=== PATIENT | female | born 1965 | race Caucasian/White ===

== ENCOUNTER 2017-05-20 15:50 | Emergency (ER) | payer SELFPAY ==
[~2017-05-20] VITALS: Ht 162.6 cm; Wt 73.9 kg
[2017-05-20] MEDS ORDERED: ONDANSETRON 4MG/2ML VIAL (J2405) IV ONE (17:00)
[2017-05-20] MEDS ORDERED: GI COCKTAIL 50ML BTL(HYOSCYAMINE/MAALOX/LIDOCAINE VISCOUS)(1:3:1) PO ONE (17:00)
[2017-05-20] MEDS ORDERED: NS 1,000 ML IV ONE (17:00)
[2017-05-20 17:32] LABS: BASO # 0.1 K/mm3 (0.0-0.2); BASO % 0.7 % (0.0-1.0); EOS % 0.2 % (0.0-3.0); LARGE UNSTAINED CELL # 0.1 K/mm3 (0.0-0.4); LARGE UNSTAINED CELL % 1.8 % (0.0-4.0); LYMPH # 3.1 K/mm3 (1.5-4.5); LYMPH % 39.4 % (24.0-44.0); MEAN CORPUSCULAR HEMOGLOBIN 31.2 pg (27.0-33.0); MEAN CORPUSCULAR HGB CONC 34.3 g/dl (32.0-36.5); MEAN CORPUSCULAR VOLUME 90.8 fl (80.0-96.0); MONO # 0.4 K/mm3 (0.0-0.8); MONO % 5.7 % (0.0-5.0); NEUTROPHILS % 52.1 % (36.0-66.0); PLATELET COUNT, AUTOMATED 321 k/mm3 (150-450); WHITE BLOOD COUNT 7.8 K/mm3 (4.0-10.0)
[2017-05-20 17:47] LABS: CONTROL LINE HCG INT CTR LINE PRESENT
[2017-05-20 17:56] LABS: ALBUMIN/GLOBULIN RATIO 1.18 (1.00-1.93); ALKALINE PHOSPHATASE 62 U/L (45-117); ALT/SGPT 15 U/L (12-78); ANION GAP 6 MEQ/L (8-16); AST/SGOT 10 U/L (15-37); BILIRUBIN,DIRECT < 0.1 MG/DL (0.0-0.2); BILIRUBIN,TOTAL 0.4 MG/DL (0.2-1.0); BLOOD UREA NITROGEN 10 MG/DL (7-18); CALCIUM LEVEL 8.6 MG/DL (8.5-10.1); CARBON DIOXIDE LEVEL 25 MEQ/L (21-32); CHLORIDE LEVEL 104 MEQ/L (98-107); CREATININE FOR GFR 0.73 MG/DL (0.55-1.02); GLOMERULAR FILTRATION RATE > 60.0 (>58); GLUCOSE, FASTING 90 MG/DL (70-105); POTASSIUM SERUM 3.7 MEQ/L (3.5-5.1); SODIUM LEVEL 135 MEQ/L (136-145); TOTAL PROTEIN 7.4 GM/DL (6.4-8.2)
[2017-05-20] MEDS ORDERED: OMEPRAZOLE 20 MG CAP PO ONE (18:30)
[2017-05-20] MEDS ORDERED: PRIL20CA9 PO (19:11)
[2017-05-20 19:17] VITALS: BP 136/88
--- NOTE | 2017-05-20 19:37 | REP ---
ABDOMINAL SERIES: Supine and erect views of the abdomen demonstrate no evidence of free intraperitoneal air. No evidence for bowel obstruction. No significantly dilated small bowel loops are seen. There are multiple phleboliths in the pelvis. There are mild degenerative changes of the spine. An accompanying view of the chest demonstrates no evidence of acute infiltrate. The heart is normal in size. IMPRESSION: Negative abdominal series. Signed by Anders Love MD 05/20/2017 08:24 P
--- NOTE | 2017-05-21 09:22 | ECGEPIP ---
Stationary ECG Study [facility] - ED Test Date: 2017-05-20 Pat Name: AMY NIEVES Department: Room: - Gender: F Ecg Technician: nathaly : 1965 Requested By: MARZENA CAMARILLO Order Number: [id number] Reading MD: Denise Capone Measurements Intervals [place] Rate: 60 P: 59 RI: 129 QRS: 74 QRSD: 88 T: 62 QT: 427 QTc: 427 Interpretive Statements SINUS RHYTHM NSTTW ABNORMALITY DECREASED RATE 11/19/11 Electronically Signed On 05-21-2017 9:22:14 EDT by Denise Capone
== END 2017-05-20 19:26 | disposition home or self-care (01) ==
LOC: M ED 17:11
DX: K52.9 Noninfective gastroenteritis and colitis, unspecified (principal); F12.10 Cannabis abuse, uncomplicated; Z90.89 Acquired absence of other organs; Z87.891 Personal history of nicotine dependence; Z88.8 Allergy status to other drugs, medicaments and biological substances; Z87.39 Personal history of other diseases of the musculoskeletal system and connective tissue
CPT/HCPCS: 74022; 80048; 80076; 82550; 82553; 83605; 83690; 84703; 85025; 93005; 96374; 99283; J2405

== ENCOUNTER → 2017-06-03 | Outpatient (REF) | payer OTHER ==
[~2017-06-03] MED LIST: PRIL20CA9 PO
== END ==
LOC: M SFHCWAGY 09:09
PROVIDERS: ATTEND Nurse Practitioner Family
DX: Z12.4 Encounter for screening for malignant neoplasm of cervix (principal)

== ENCOUNTER → 2017-08-12 | Outpatient (REF) | payer OTHER | LOC: M LAB REF 16:59 | PROVIDERS: ATTEND Nurse Practitioner Women's Health | DX: N76.0 Acute vaginitis (principal) ==

== ENCOUNTER → 2017-08-12 | Outpatient (REF) | payer OTHER | LOC: M SFHCWAGY 18:53 | PROVIDERS: ATTEND Nurse Practitioner Women's Health | DX: R87.612 Low grade squamous intraepithelial lesion on cytologic smear of cervix (LGSIL) (principal) ==

== ENCOUNTER → 2017-08-15 | Outpatient (CLI) | payer OTHER ==
--- NOTE | 2017-08-15 09:10 | REPMRS ---
Patient History The patient states she had a clinical breast exam in 06/2017. Patient is nulliparous. Family history of prostate cancer in father at age 66. Digital Woman Screen Mammo: August 15, 2017 - Exam #: [id number] Bilateral CC and MLO view(s) were taken. Technologist: Maryanne Khanna Technologist Prior study comparison: March 19, 2013, digital woman screen mammo performed at [facility] to [facility]. March 04, 2012, bilateral digital mammo diagnostic unilateral, performed at [facility]. February 22, 2012, digital woman screen mammo performed at [facility]. February 05, 2011, digital mammo diagnostic bilateral, performed at [facility]. FINDINGS: There are scattered fibroglandular densities. There is a stable grouping of punctate microcalcifications in the upper outer quadrant of the left breast unchanged from the March 21, 2012 prior mammography. There has been no change in the appearance of the mammogram from the prior studies. There is a mild amount of scattered fibroglandular density which is fairly symmetric. There is no interval development of dominant mass, architectural distortion, or clustered microcalcification suggestive of malignancy. ASSESSMENT: BI-RADS/ACR category 2 mammogram. Benign finding(s). Recommendation Routine screening mammogram in 1 year (for women over age 40). This mammogram was interpreted with the aid of an FDA-approved computer-aided dectection system. Electronically Signed By: Familia Gee MD 08/15/17 0918
== END ==
LOC: M WHC 08:10
PROVIDERS: ATTEND Nurse Practitioner Family
DX: Z12.31 Encounter for screening mammogram for malignant neoplasm of breast (principal)

== ENCOUNTER 2017-09-18 18:28 | Emergency (ER) | payer OTHER, SELFPAY ==
[~2017-09-18] VITALS: Ht 162.6 cm; Wt 77.3 kg
--- NOTE | 2017-09-18 21:10 | REPUSA ---
CLINICAL HISTORY: Pelvic pain. Ovarian cyst. TECHNIQUE: Realtime sonographic images were obtained in multiple projections. COMMENTS: The uterus is anteverted measuring 6.6 x 3.8 x 4.1 cm. The uterus is mildly heterogeneous. The endo metrial echo pattern is within normal limits measuring 5.9 mm. There is no evidence of free fluid within the pelvic cul-de-sac. The right ovary measures 1.9 x 1.4 x 1.5 cm and the left ovary measures 2.2 x 1.7 x 2.5 cm. Both ova thomas are free of solid or cystic mass. There is no evidence for abnormal vascularity. IMPRESSION: 1. Mildly heterogeneous uterus. 2. Normal bilateral ovaries.
[2017-09-18 21:40] VITALS: BP 132/58
== END 2017-09-18 21:41 | disposition home or self-care (01) ==
LOC: M ED 18:28
DX: R10.31 Right lower quadrant pain (principal); F41.9 Anxiety disorder, unspecified; F32.9 Major depressive disorder, single episode, unspecified; N83.299 Other ovarian cyst, unspecified side; Z88.8 Allergy status to other drugs, medicaments and biological substances

== ENCOUNTER 2018-07-05 07:13 | Emergency (ER) | payer SELFPAY ==
[2018-07-05 07:36] LABS: BASO # 0.1 10^3/uL (0.0-0.2); BASO % 0.7 % (0.0-1.0); HEMATOCRIT 48.3 % (36.0-47.0); HEMOGLOBIN 16.1 g/dl (12.0-15.5); IMMATURE GRANULOCYTE % 0.3 % (0-3.0); LYMPH % 31.7 % (24.0-44.0); MEAN CORPUSCULAR HEMOGLOBIN 29.7 pg (27.0-33.0); MEAN CORPUSCULAR HGB CONC 33.3 g/dl (32.0-36.5); MEAN CORPUSCULAR VOLUME 89.1 fl (80.0-96.0); MONO # 0.9 10^3/uL (0.0-0.8); MONO % 9.5 % (0.0-5.0); NEUTROPHILS # 5.4 10^3/uL (1.8-7.7); NEUTROPHILS % 57.8 % (36.0-66.0); PLATELET COUNT, AUTOMATED 354 10^3/uL (150-450); RED BLOOD COUNT 5.42 10^6/uL (4.00-5.40); RED CELL DISTRIBUTION WIDTH 13.8 % (11.5-14.5); WHITE BLOOD COUNT 9.4 10^3/uL (4.0-10.0)
[2018-07-05] MEDS: ADENOSINE 6MG/2ML INJECTION (J0153) IV (07:39)
[2018-07-05 07:46] LABS: INR 0.93; PROTHROMBIN TIME 12.5 SECONDS (12.1-14.4)
[2018-07-05 07:47] LABS: PARTIAL THROMBOPLASTIN TIME 50.5 SECONDS (25.4-37.6)
[2018-07-05] MEDS: METOPROLOL 5 MG/5 ML VIAL IV ×3 (07:53→08:10)
[2018-07-05 08:08] LABS: ALBUMIN/GLOBULIN RATIO 0.89 (1.00-1.93); ALKALINE PHOSPHATASE 76 U/L (45-117); ALT/SGPT 39 U/L (12-78); ANION GAP 9 MEQ/L (8-16); AST/SGOT 21 U/L (7-37); BILIRUBIN,DIRECT < 0.1 MG/DL (0.0-0.2); BILIRUBIN,TOTAL 0.4 MG/DL (0.2-1.0); BLOOD UREA NITROGEN 11 MG/DL (7-18); CALCIUM LEVEL 9.2 MG/DL (8.5-10.1); CARBON DIOXIDE LEVEL 25 MEQ/L (21-32); CHLORIDE LEVEL 105 MEQ/L (98-107); CPK CREATINE PHOSPHOKINASE 153 U/L (26-192); CREATININE FOR GFR 0.96 MG/DL (0.55-1.30); FREE T4 0.99 NG/DL (0.76-1.46); GLOMERULAR FILTRATION RATE > 60.0 (>51); GLUCOSE, FASTING 121 MG/DL (70-100); LIPASE 165 U/L (73-393); POTASSIUM SERUM 4.1 MEQ/L (3.5-5.1); SODIUM LEVEL 139 MEQ/L (136-145); TOTAL PROTEIN 8.5 GM/DL (6.4-8.2); TROPONIN I < 0.02 NG/ML (< 0.10)
[2018-07-05 08:13] LABS: CK-MB VALUE MASS 1.2 NG/ML (<3.6); MB/CK RELATIVE INDEX 0.78 (< OR =4); NT-PRO BNP 66 PG/ML (<125)
[2018-07-05] MEDS ORDERED: ISOVUE-370 76% 100ML VIAL (Q9967) As Ordered (08:42)
[2018-07-05 14:01] LABS: CK-MB VALUE MASS 1.6 NG/ML (<3.6); CPK CREATINE PHOSPHOKINASE 134 U/L (26-192); MB/CK RELATIVE INDEX 1.19 (< OR =4); TROPONIN I 0.02 NG/ML (< 0.10)
== END 2018-07-05 14:39 | disposition home or self-care (01) ==
LOC: M ED 07:13
DX: R91.8 Other nonspecific abnormal finding of lung field (principal); I48.92 Unspecified atrial flutter; R06.02 Shortness of breath; R11.0 Nausea; Z87.891 Personal history of nicotine dependence; Z88.8 Allergy status to other drugs, medicaments and biological substances
CPT/HCPCS: Q9967

== ENCOUNTER → 2018-08-12 | Outpatient (CLI) | payer SELFPAY | LOC: M CARPUL 09:38 | DX: I48.92 Unspecified atrial flutter (principal) | CPT/HCPCS: 93306 ==

== ENCOUNTER → 2018-09-03 | Outpatient (REF) | payer BC ==
[2018-09-03 17:00] LABS: FREE T3 2.6 PG/ML (2.2-4.0); FREE T4 0.91 NG/DL (0.76-1.46)
== END ==
LOC: M SFHCPLAZ 12:04
DX: I48.92 Unspecified atrial flutter (principal)
CPT/HCPCS: 84443

== ENCOUNTER → 2018-09-10 | Outpatient (REF) | payer BC ==
[2018-09-10 12:23] LABS: HEMATOCRIT 42.7 % (36.0-47.0); HEMOGLOBIN 13.6 g/dl (12.0-15.5); MEAN CORPUSCULAR HEMOGLOBIN 29.2 pg (27.0-33.0); MEAN CORPUSCULAR HGB CONC 31.9 g/dl (32.0-36.5); MEAN CORPUSCULAR VOLUME 91.6 fl (80.0-96.0); PLATELET COUNT, AUTOMATED 327 10^3/uL (150-450); RED BLOOD COUNT 4.66 10^6/uL (4.00-5.40); WHITE BLOOD COUNT 6.2 10^3/uL (4.0-10.0)
== END ==
LOC: M SFHCPLAZ 10:44
DX: N93.9 Abnormal uterine and vaginal bleeding, unspecified (principal)
CPT/HCPCS: 85027

== ENCOUNTER → 2019-01-12 | Outpatient (REF) | payer BC ==
[2019-01-12 19:21] LABS: FREE T4 0.89 NG/DL (0.76-1.46); THYROID STIMULATING HORMONE 8.09 uIU/ML (0.358-3.740)
== END ==
LOC: M SFHCPLAZ 14:26
PROVIDERS: ATTEND Family Medicine
DX: E03.8 Other specified hypothyroidism (principal)

== ENCOUNTER 2019-01-29 14:58 | Emergency (ER) | payer BC ==
[~2019-01-29] VITALS: Ht 162.6 cm; Wt 79.1 kg
[2019-01-29] MEDS ORDERED: ELIQ5TAB PO (15:14)
[2019-01-29] MEDS ORDERED: PARO1TAB33 PO (15:14)
[2019-01-29] MEDS ORDERED: METO1TAB87 PO (15:14)
[2019-01-29] MEDS ORDERED: NS 500 ML IV ONE (16:45)
[2019-01-29 16:51] LABS: BASO % 0.4 % (0.0-1.0); EOS % 0.2 % (0.0-3.0); HEMATOCRIT 49.9 % (36.0-47.0); HEMOGLOBIN 17.2 g/dl (12.0-15.5); LYMPH # 2.7 10^3/uL (1.5-4.5); LYMPH % 28.3 % (24.0-44.0); MEAN CORPUSCULAR HEMOGLOBIN 29.7 pg (27.0-33.0); MEAN CORPUSCULAR HGB CONC 34.5 g/dl (32.0-36.5); MONO # 0.7 10^3/uL (0.0-0.8); MONO % 7.7 % (0.0-5.0); NEUTROPHILS # 6.1 10^3/uL (1.8-7.7); NEUTROPHILS % 63.2 % (36.0-66.0); PLATELET COUNT, AUTOMATED 320 10^3/uL (150-450); WHITE BLOOD COUNT 9.6 10^3/uL (4.0-10.0)
[2019-01-29 18:13] LABS: ALBUMIN 3.8 GM/DL (3.2-5.2); ALT/SGPT 24 U/L (12-78); BILIRUBIN,DIRECT 0.2 MG/DL (0.0-0.2); BILIRUBIN,TOTAL 0.8 MG/DL (0.2-1.0); BLOOD UREA NITROGEN 12 MG/DL (7-18); CARBON DIOXIDE LEVEL 34 MEQ/L (21-32); CHLORIDE LEVEL 93 MEQ/L (98-107); CREATININE FOR GFR 0.85 MG/DL (0.55-1.30); GLOMERULAR FILTRATION RATE > 60.0 (>51); GLUCOSE, FASTING 98 MG/DL (70-100); POTASSIUM SERUM 2.9 MEQ/L (3.5-5.1); SODIUM LEVEL 135 MEQ/L (136-145); TOTAL PROTEIN 7.6 GM/DL (6.4-8.2)
[2019-01-29] MEDS ORDERED: POTASSIUM CHLORIDE 10 MEQ SR TABLET PO ONE (18:15)
[2019-01-29] MEDS ORDERED: METOCLOPRAMIDE INJ 10MG/2ML VIAL (J2765) IV ONE (18:15)
[2019-01-29] MEDS ORDERED: ONDA4TAB6 PO (18:39)
[2019-01-29] MEDS ORDERED: K-TA1TAB PO (18:39)
[2019-01-29 19:11] VITALS: BP 133/75
--- NOTE | 2019-01-31 09:37 | ECGEPIP ---
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
== END 2019-01-29 19:14 | disposition home or self-care (01) ==
LOC: M ED 14:58
DX: R11.2 Nausea with vomiting, unspecified (principal); E87.6 Hypokalemia; I48.92 Unspecified atrial flutter; M54.9 Dorsalgia, unspecified; F32.9 Major depressive disorder, single episode, unspecified; F17.200 Nicotine dependence, unspecified, uncomplicated; Z88.8 Allergy status to other drugs, medicaments and biological substances; Z79.899 Other long term (current) drug therapy; Z79.01 Long term (current) use of anticoagulants
CPT/HCPCS: 36415; 80048; 80076; 85025; 93005; 96374; 99285; J2765

== ENCOUNTER → 2019-02-11 | Outpatient (CLI) | payer BC ==
[~2019-02-11] MED LIST changes: +BUPR150T3; +CIPR500T3; +ELIQ5TAB PO; +GASTROGRAFIN SOLUTION 30ML (Q9963) As Ordered ONE; +ISOVUE-370 76% 100ML VIAL (Q9967) As Ordered ONE; +K-TA1TAB PO; +METO1TAB87 PO; +METR-201; +NORCOTAB PO; +OMEP-218; +ONDA4TAB6 PO; +PARO1TAB33 PO; +REGL10TA6 PO
--- NOTE | 2019-02-11 13:48 | REP ---
CT ABDOMEN PELVIS WITH IV CONTRAST: 02/11/2019 COMPARISON: 02/02/2013. TECHNIQUE: Bolus of 100 mL Isovue 370 and oral Gastrografin mixture per our protocol utilized with scanning through the abdomen and pelvis in both coronal and sagittal reconstructions provided. CLINICAL HISTORY: Generalized abdominal pain. FINDINGS: CT ABDOMEN: The lung bases remain clear. Heart not enlarged. There is no pericardial thickening or effusion and no hiatal hernia. Liver and spleen are not enlarged. I see no focal hepatic mass or intrahepatic biliary dilatation. Gallbladder without calcified stone appears unchanged. Pancreas, adrenal glands and kidneys are grossly unremarkable. Stomach with some retained fluid but no wall thickening or mass. Small bowel loops are fluid or contrast filled but not abnormally dilated. Most of the contrast is in distal small bowel and colon where it reaches the hepatic flexure. Stool and gas are scattered throughout the colon to the rectosigmoid. The aorta is without aneurysm or dissection. No periaortic or retroperitoneal pathologic sized lymphadenopathy. Lung window review of all CT slices in the abdomen shows no perforation or free air. Bone windows show lumbar and lower thoracic vertebral levels with some degenerative changes in the facets. The bones of the lower thoracic vertebral levels and ribs intact. CT PELVIS: The bony sacrum, pelvis, hips and pubic symphysis are unremarkable. SI joints intact. Bladder partially filled without mass, wall thickening or stone. Uterus anteverted, not enlarged. No ureteral dilatation or stone. No adnexal mass. The distal left colon was unremarkable. The sigmoid shows a zone of muscular hypertrophy and diverticulosis with some mild diverticulitis. I do not see perforation, abscess or free air. The study shows no evidence of ascites or abscess. No other drainable collection. No ventral or inguinal hernia nor pathologic sized inguinal adenopathy. IMPRESSION: 1. Fairly extensive diverticulosis with sigmoid diverticulitis and muscular hypertrophy. I do not see perforation, abscess, ascites or free air. 2. Remainder of the colon is unremarkable and the appendix absent. Small bowel loops intact. Upper abdominal organs unremarkable. Electronically Signed by Jaxon Hess MD 02/11/2019 09:53 P
== END ==
LOC: M RAD 10:43
PROVIDERS: ATTEND Family Medicine
DX: R10.9 Unspecified abdominal pain (principal)

== ENCOUNTER 2019-02-12 17:37 | Emergency (ER) | payer BC ==
[~2019-02-12] VITALS: Ht 162.6 cm; Wt 79.2 kg
[~2019-02-12 17:37] MED LIST changes: -BUPR150T3; -CIPR500T3; -METR-201; -NORCOTAB PO; -OMEP-218; -REGL10TA6 PO
[2019-02-12] MEDS ORDERED: METR-201 (17:49)
[2019-02-12] MEDS ORDERED: BUPR150T3 (17:49)
[2019-02-12] MEDS ORDERED: OMEP-218 (17:49)
[2019-02-12] MEDS ORDERED: CIPR500T3 (17:49)
[2019-02-12] MEDS ORDERED: IPRATROPIUM 0.5MG/ALBUTEROL 2.5MG INH SOL UD 3ML (DUONEB)(J7620) NEB ONE (20:15)
[2019-02-12] MEDS ORDERED: LR 1,000 ML IV ONE (20:15)
[2019-02-12] MEDS ORDERED: MORPHINE 4 MG/ML 1ML VIAL/SYRINGE (J2270) IV PRN (20:15)
[2019-02-12] MEDS ORDERED: CIPROFLOXACIN 500 MG TAB PO ONE (20:30)
[2019-02-12] MEDS ORDERED: metroNIDAZOLE (FLAGYL) 500 MG TAB PO ONE (20:30)
[2019-02-12 20:49] LABS: BASO % 0.5 % (0.0-1.0); EOS # 0.1 10^3/uL (0.0-0.50); EOS % 0.8 % (0.0-3.0); HEMOGLOBIN 13.6 g/dl (12.0-15.5); LYMPH # 2.8 10^3/uL (1.5-4.5); LYMPH % 36.1 % (24.0-44.0); MEAN CORPUSCULAR HEMOGLOBIN 29.3 pg (27.0-33.0); MEAN CORPUSCULAR HGB CONC 31.6 g/dl (32.0-36.5); MEAN CORPUSCULAR VOLUME 92.7 fl (80.0-96.0); MONO # 0.6 10^3/uL (0.0-0.8); MONO % 7.3 % (0.0-5.0); NEUTROPHILS # 4.2 10^3/uL (1.8-7.7); PLATELET COUNT, AUTOMATED 382 10^3/uL (150-450); RED BLOOD COUNT 4.64 10^6/uL (4.00-5.40); WHITE BLOOD COUNT 7.6 10^3/uL (4.0-10.0)
[2019-02-12 21:13] LABS: ALBUMIN 3.9 GM/DL (3.2-5.2); ALT/SGPT 21 U/L (12-78); BILIRUBIN,DIRECT < 0.1 MG/DL (0.0-0.2); BILIRUBIN,TOTAL 0.2 MG/DL (0.2-1.0); BLOOD UREA NITROGEN 8 MG/DL (7-18); CALCIUM LEVEL 8.7 MG/DL (8.5-10.1); CARBON DIOXIDE LEVEL 29 MEQ/L (21-32); CHLORIDE LEVEL 105 MEQ/L (98-107); GLOMERULAR FILTRATION RATE > 60.0 (>51); GLUCOSE, FASTING 88 MG/DL (70-100); LIPASE 509 U/L (73-393); POTASSIUM SERUM 3.8 MEQ/L (3.5-5.1); SODIUM LEVEL 140 MEQ/L (136-145); TOTAL PROTEIN 7.3 GM/DL (6.4-8.2)
[2019-02-12 21:16] LABS: CK-MB VALUE MASS < 1.0 NG/ML (<3.6); CPK CREATINE PHOSPHOKINASE 163 U/L (26-192); MB/CK RELATIVE INDEX 0.61 (< OR =4); TROPONIN I < 0.02 NG/ML (< 0.10)
[2019-02-12] MEDS ORDERED: METOCLOPRAMIDE INJ 10MG/2ML VIAL (J2765) IV ONE (21:45)
[2019-02-12 22:02] VITALS: BP 102/59
[2019-02-12] MEDS ORDERED: REGL10TA6 PO (22:08)
[2019-02-12] MEDS ORDERED: NORCOTAB PO (22:08)
[2019-02-12] MEDS ORDERED: NORCO 5/325MG TABLET (BULK FOR ED) PO ONE (22:15)
--- NOTE | 2019-02-13 02:16 | REP ---
Clinical: Wheezing . Comparison: 07/05/2018 . Technique: PA and lateral. Findings: The mediastinum and cardiac silhouette are normal. The lung ortiz are clear and without acute consolidation, effusion, or pneumothorax. The skeletal structures are intact and normal. Impression: 1. No acute cardiopulmonary process. Electronically Signed by Kelton Mojica MD 02/13/2019 02:08 A
--- NOTE | 2019-02-13 20:27 | ECGEPIP ---
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
== END 2019-02-12 22:30 | disposition home or self-care (01) ==
LOC: M ED 17:37
DX: K57.32 Diverticulitis of large intestine without perforation or abscess without bleeding (principal); R74.8 Abnormal levels of other serum enzymes; R10.13 Epigastric pain; G89.29 Other chronic pain; R11.2 Nausea with vomiting, unspecified; M26.69 Other specified disorders of temporomandibular joint; Z87.891 Personal history of nicotine dependence; Z88.8 Allergy status to other drugs, medicaments and biological substances; Z79.899 Other long term (current) drug therapy; Z79.2 Long term (current) use of antibiotics
CPT/HCPCS: 71046; 80048; 80076; 81001; 82550; 82553; 83690; 85025; 87086; 93005; 94640; 96374; 96375; 99284; J2270; J2765

== ENCOUNTER → 2019-02-12 | Outpatient (REF) | payer BC ==
[~2019-02-12] MED LIST changes: -GASTROGRAFIN SOLUTION 30ML (Q9963) As Ordered ONE; -ISOVUE-370 76% 100ML VIAL (Q9967) As Ordered ONE
[2019-02-12 16:37] LABS: BASO % 0.6 % (0.0-1.0); EOS % 0.6 % (0.0-3.0); HEMATOCRIT 40.2 % (36.0-47.0); HEMOGLOBIN 12.9 g/dl (12.0-15.5); LYMPH # 2.3 10^3/uL (1.5-4.5); LYMPH % 34.8 % (24.0-44.0); MEAN CORPUSCULAR HEMOGLOBIN 29.1 pg (27.0-33.0); MEAN CORPUSCULAR HGB CONC 32.1 g/dl (32.0-36.5); MEAN CORPUSCULAR VOLUME 90.7 fl (80.0-96.0); MONO # 0.5 10^3/uL (0.0-0.8); NEUTROPHILS # 3.8 10^3/uL (1.8-7.7); NEUTROPHILS % 56.8 % (36.0-66.0); PLATELET COUNT, AUTOMATED 363 10^3/uL (150-450); RED BLOOD COUNT 4.43 10^6/uL (4.00-5.40); WHITE BLOOD COUNT 6.6 10^3/uL (4.0-10.0)
[2019-02-12 16:51] LABS: C REACTIVE PROTEIN QUANTITATIV < 0.30 MG/DL (0.00-0.30); LIPASE 1069 U/L (73-393)
[2019-02-12 20:14] LABS: ALBUMIN 3.4 GM/DL (3.2-5.2); ALT/SGPT 15 U/L (12-78); BILIRUBIN,TOTAL 0.2 MG/DL (0.2-1.0); BLOOD UREA NITROGEN 9 MG/DL (7-18); CALCIUM LEVEL 8.5 MG/DL (8.5-10.1); CARBON DIOXIDE LEVEL 29 MEQ/L (21-32); CHLORIDE LEVEL 108 MEQ/L (98-107); CREATININE FOR GFR 0.74 MG/DL (0.55-1.30); GLOMERULAR FILTRATION RATE > 60.0 (>51); GLUCOSE, FASTING 104 MG/DL (70-100); POTASSIUM SERUM 4.3 MEQ/L (3.5-5.1); SODIUM LEVEL 141 MEQ/L (136-145); TOTAL PROTEIN 6.4 GM/DL (6.4-8.2)
[2019-02-12 20:26] LABS: ERYTHROCYTE SEDIMENTATION RATE 6 mm/hr (0-30)
== END ==
LOC: M LABDRAW1 15:34
PROVIDERS: ATTEND Family Medicine
DX: R10.84 Generalized abdominal pain (principal)

== ENCOUNTER → 2019-02-18 | Outpatient (REF) | payer BC ==
[~2019-02-18] MED LIST changes: +BUPR150T3; +CIPR500T3; +METR-201; +NORCOTAB PO; +OMEP-218; +REGL10TA6 PO
[2019-02-18 14:32] LABS: CHOLESTEROL RISK RATIO 3.792 (<5)
== END ==
LOC: M SFHCPLAZ 12:18
PROVIDERS: ATTEND Family Medicine
DX: K85.90 Acute pancreatitis without necrosis or infection, unspecified (principal)

== ENCOUNTER 2019-04-11 10:45 | Emergency (ER) | payer BC ==
[~2019-04-11] VITALS: Ht 162.6 cm; Wt 70.4 kg
[~2019-04-11 10:45] MED LIST changes: +HYDR-3715 PO; -METR-201; +METR-265; -NORCOTAB PO
[2019-04-11] MEDS ORDERED: SUCRALFATE 1 GM TAB PO ONE (11:45)
[2019-04-11] MEDS ORDERED: NS 1,000 ML IV ONE (11:45)
[2019-04-11] MEDS ORDERED: ONDANSETRON 4MG/2ML VIAL (J2405) IV ONE (11:45)
[2019-04-11] MEDS ORDERED: GI COCKTAIL 50ML BTL(HYOSCYAMINE/MAALOX/LIDOCAINE VISCOUS)(1:3:1) PO ONE (11:45)
[2019-04-11] MEDS ORDERED: PANTOPRAZOLE 40MG INJ (PROTONIX) (C9113) IV ONE (11:45)
[2019-04-11] MEDS ORDERED: ISOVUE-370 76% 100ML VIAL (Q9967) As Ordered ONE (11:47)
[2019-04-11 11:54] LABS: BASO # 0.1 10^3/uL (0.0-0.2); BASO % 0.7 % (0.0-1.0); EOS # 0.1 10^3/uL (0.0-0.50); EOS % 0.9 % (0.0-3.0); HEMATOCRIT 49.2 % (36.0-47.0); HEMOGLOBIN 16.7 g/dl (12.0-15.5); LYMPH # 2.3 10^3/uL (1.5-4.5); LYMPH % 24.5 % (24.0-44.0); MEAN CORPUSCULAR HEMOGLOBIN 29.9 pg (27.0-33.0); MEAN CORPUSCULAR HGB CONC 33.9 g/dl (32.0-36.5); MONO # 0.7 10^3/uL (0.0-0.8); MONO % 8.1 % (0.0-5.0); NEUTROPHILS % 65.5 % (36.0-66.0); PLATELET COUNT, AUTOMATED 394 10^3/uL (150-450); RED BLOOD COUNT 5.59 10^6/uL (4.00-5.40); WHITE BLOOD COUNT 9.2 10^3/uL (4.0-10.0)
[2019-04-11 12:05] LABS: ALBUMIN 4.3 GM/DL (3.2-5.2); ALBUMIN 4.5 GM/DL (3.2-5.2); ALT/SGPT 12 U/L (12-78); BILIRUBIN,DIRECT 0.2 MG/DL (0.0-0.2); BILIRUBIN,TOTAL 0.9 MG/DL (0.2-1.0); BLOOD UREA NITROGEN 12 MG/DL (7-18); CALCIUM LEVEL 9.9 MG/DL (8.5-10.1); CARBON DIOXIDE LEVEL 29 MEQ/L (21-32); CHLORIDE LEVEL 96 MEQ/L (98-107); CREATININE FOR GFR 0.88 MG/DL (0.55-1.30); GLOMERULAR FILTRATION RATE > 60.0 (>51); GLUCOSE, FASTING 120 MG/DL (70-100); POTASSIUM SERUM 3.3 MEQ/L (3.5-5.1); SODIUM LEVEL 135 MEQ/L (136-145); TOTAL PROTEIN 8.2 GM/DL (6.4-8.2); TOTAL PROTEIN 8.3 GM/DL (6.4-8.2)
--- NOTE | 2019-04-11 12:27 | REP ---
CT ABDOMEN AND PELVIS WITH IV BUT WITHOUT ORAL CONTRAST: HISTORY: Epigastric pain. Evaluate for pancreatitis. COMPARISON CT STUDY: February 11, 2019 CT CONTRAST DOSE: 100 mL of intravenous Isovue 370. CT FINDINGS: Preliminary digital automobile club information clerk radiograph is unremarkable. Lung bases are clear on axial CT images. There is no evidence of pleural effusion or upper abdominal ascites. The liver and the spleen are normal in size, homogeneous in texture. No adrenal lesion is seen. No pancreatic abnormality is seen. There is mild enhancement of the gallbladder wall, but no stone is seen by CT. No retroperitoneal or mesenteric adenopathy is appreciated. The kidneys enhance symmetrically and are morphologically intact. No intrarenal calculus is observed. There is extensive sigmoid colon diverticulosis. Scattered diverticulosis is seen in the right colon and descending segment of the colon. Terminal ileum is unremarkable. The appendix is surgically absent. There is some mural thickening in the sigmoid colon similar to the prior study of February 11, 2019. No evidence of abscess or pericolonic fat stranding is appreciated. No evidence of free intraperitoneal air is seen. No uterine or ovarian abnormality is observed. No abdominal wall defect is seen. Urinary bladder is largely empty but unremarkable. No significant bony abnormality. IMPRESSION: Moderate left colonic diverticulosis with mild mural thickening, question of diverticulitis. No abscess or free air. Post appendectomy. No morphologic abnormality in the pancreas. Otherwise negative. Electronically Signed by Kwabena Gee MD 04/11/2019 03:29 P
[2019-04-11] MEDS ORDERED: [UNRECOGNIZED DRUG - CODE] TOP (12:52)
[2019-04-11] MEDS ORDERED: CARA1TAB6 PO (12:52)
[2019-04-11] MEDS ORDERED: ONDA4TAB6 PO (12:57)
[2019-04-11 13:11] VITALS: BP 172/92
== END 2019-04-11 13:21 | disposition home or self-care (01) ==
LOC: M ED 10:45
DX: K52.9 Noninfective gastroenteritis and colitis, unspecified (principal); T40.7X1A Poisoning by cannabis (derivatives), accidental (unintentional), initial encounter; R11.2 Nausea with vomiting, unspecified; K57.30 Diverticulosis of large intestine without perforation or abscess without bleeding; Z87.42 Personal history of other diseases of the female genital tract; Z87.891 Personal history of nicotine dependence; Z88.8 Allergy status to other drugs, medicaments and biological substances; Z79.899 Other long term (current) drug therapy
CPT/HCPCS: 36415; 74177; 80047; 80053; 83605; 83690; 85025; 96361; 96374; 96375; 99284; C9113; J2405; Q9967

== ENCOUNTER 2019-05-04 16:00 | Emergency (ER) | payer BC ==
[~2019-05-04] VITALS: Ht 162.6 cm; Wt 68.1 kg
[~2019-05-04 16:00] MED LIST changes: +CARA1TAB6 PO; +[UNRECOGNIZED DRUG - CODE] TOP
[2019-05-04] MEDS ORDERED: NS 1,000 ML IV ONE ×2 (17:00→19:45)
[2019-05-04] MEDS ORDERED: ONDANSETRON 4MG/2ML VIAL (J2405) IV ONE (17:00)
[2019-05-04] MEDS ORDERED: KETOROLAC 30 MG/ML VIAL (J1885) IV ONE (17:00)
[2019-05-04 17:24] LABS: BASO # 0.1 10^3/uL (0.0-0.2); BASO % 0.5 % (0.0-1.0); EOS % 0.3 % (0.0-3.0); HEMOGLOBIN 15.9 g/dl (12.0-15.5); LYMPH # 3.5 10^3/uL (1.5-4.5); LYMPH % 30.8 % (24.0-44.0); MEAN CORPUSCULAR HEMOGLOBIN 29.2 pg (27.0-33.0); MEAN CORPUSCULAR HGB CONC 33.8 g/dl (32.0-36.5); MEAN CORPUSCULAR VOLUME 86.4 fl (80.0-96.0); MONO # 0.8 10^3/uL (0.0-0.8); MONO % 7.2 % (0.0-5.0); NEUTROPHILS % 60.9 % (36.0-66.0); PLATELET COUNT, AUTOMATED 340 10^3/uL (150-450); RED BLOOD COUNT 5.44 10^6/uL (4.00-5.40); WHITE BLOOD COUNT 11.5 10^3/uL (4.0-10.0)
[2019-05-04 17:36] LABS: ALBUMIN 4.5 GM/DL (3.2-5.2); ALT/SGPT 15 U/L (12-78); BILIRUBIN,DIRECT 0.2 MG/DL (0.0-0.2); BILIRUBIN,TOTAL 0.7 MG/DL (0.2-1.0); BLOOD UREA NITROGEN 16 MG/DL (7-18); CALCIUM LEVEL 10.3 MG/DL (8.5-10.1); CARBON DIOXIDE LEVEL 27 MEQ/L (21-32); CHLORIDE LEVEL 97 MEQ/L (98-107); CREATININE FOR GFR 0.93 MG/DL (0.55-1.30); GLOMERULAR FILTRATION RATE > 60.0 (>51); GLUCOSE, FASTING 106 MG/DL (70-100); LIPASE 88 U/L (73-393); POTASSIUM SERUM 3.4 MEQ/L (3.5-5.1); SODIUM LEVEL 137 MEQ/L (136-145); TOTAL PROTEIN 8.1 GM/DL (6.4-8.2)
--- NOTE | 2019-05-04 19:09 | REPVR ---
EXAM: US Abdomen Limited, Right Upper Quadrant EXAM DATE/TIME: 05/04/2019 6:33 PM CLINICAL HISTORY: 53 years old, female; Abdominal pain; Epigastric; Additional info: HX cholelithiasis/inc wbc/ruq pain TECHNIQUE: Imaging protocol: Real-time ultrasound of the abdomen with image documentation. Examination was focused on the right upper quadrant. COMPARISON: GALLBLADDER US 04/21/2019 6:53 AM FINDINGS: Liver: Unremarkable, as visualized. Gallbladder: The gallbladder demonstrates multiple shadowing stones, as before. The sonographic Thomas sign was again positive. Common bile duct: The common bile duct measures 3.6 mm. Pancreas: Visualized pancreas is unremarkable. Right kidney: The right kidney measures 11.1 cm in length. No hydronephrosis. IMPRESSION: 1. Cholelithiasis without sonographic evidence of cholecystitis. 2. The sonographic Thomas sign was positive, of uncertain significance, as before (could reflect early cholecystitis or biliary colic). Electronically signed by: Criselda Quach On 05/04/2019 19:08:44 PM
[2019-05-04] MEDS ORDERED: ISOVUE-370 76% 100ML VIAL (Q9967) As Ordered ONE (19:48)
[2019-05-04 19:56] LABS: CPK CREATINE PHOSPHOKINASE 99 U/L (26-192); MB/CK RELATIVE INDEX 1.21 (< OR =4); TROPONIN I < 0.02 NG/ML (< 0.10)
--- NOTE | 2019-05-04 20:54 | REPVR ---
EXAM: CT Abdomen and Pelvis With Contrast EXAM DATE/TIME: 05/04/2019 8:18 PM CLINICAL HISTORY: 53 years old, female; Abdominal pain; Localized; Lower; Additional info: Lower abd pain, HX divertic TECHNIQUE: Imaging protocol: Axial computed tomography images of the abdomen and pelvis with intravenous contrast. Coronal and sagittal reformatted images were created and reviewed. Radiation optimization: All CT scans at this facility use at least one of these dose optimization techniques: automated exposure control; mA and/or kV adjustment per patient size (includes targeted exams where dose is matched to clinical indication); or iterative reconstruction. Contrast material: ISOVUE 370; Contrast volume: 100 ml; Contrast route: IV; COMPARISON: CT ABD/PEL W/IV CONTRAST ONLY 04/11/2019 11:49 AM. US - Abdomen 05/04/2019 6:24:21 PM FINDINGS: A 2 mm left lower lobe nodule pulmonary nodule is unchanged. For patients at low risk (minimal or absent history of smoking and of other known risk factors), no routine follow-up is indicated. For patients at high risk (history of smoking or of other known risk factors), consider optional CT at 12 months. (Augustine et al., Fleischner Society, 2017). ABDOMEN: Liver: Normal. No mass. Gallbladder and bile ducts: No calcified gallstones identified. A trace amount of nonspecific pericholecystic fluid (without sonographic correlate), image 43 series 201. The gallbladder wall appears mildly enhancing, as before. Pancreas: Normal. No ductal dilation. Spleen: Normal. No splenomegaly. Adrenals: Normal. No mass. Kidneys and ureters: The right kidney demonstrates a small cortical scar. No hydronephrosis. Stomach and bowel: The appearance of duodenal wall thickening is probably related to underdistention. The appearance of diffuse distal colonic wall thickening, similar to the prior study suspicious for ongoing or recurrent colitis or diverticulitis. No evidence of bowel wall pneumatosis or abscess. The appearance of duodenal wall thickening is probably related to underdistention. No evidence of bowel obstruction. A moderate amount of stool in the proximal colon. Appendix: An appendix is not visualized. No secondary signs of appendicitis identified in the right lower quadrant. PELVIS: Bladder: Unremarkable as visualized. Reproductive: Unremarkable as visualized. ABDOMEN and PELVIS: Intraperitoneal space: Normal. No free air. No significant fluid collection. Bones/joints: No acute fracture seen. Slight grade 1 degenerative anterolisthesis of L3 on L4. There is severe lower lumbar facet arthropathy. The AP spinal canal diameter is diminished on a developmental basis due to shortened pedicles. There are high-grade central spinal canal and lateral recess stenoses at L3-4 and L4-5. Several small sclerotic lesions are seen in the bony skeleton which are felt to represent bone islands. Soft tissues: Unremarkable. Vasculature: Normal. No abdominal aortic aneurysm. Lymph nodes: No pathologically enlarged lymph nodes. IMPRESSION: 1. The appearance of diffuse distal colonic wall thickening, similar to the prior study suspicious for ongoing or recurrent colitis or diverticulitis. 2. A trace amount of nonspecific pericholecystic fluid has developed since the prior study. Please correlate with the clinical scenario, the possibility of an early cholecystitis is considered although there was no sonographically evident fluid or gallbladder wall thickening on the ultrasound exam. A short interval followup right upper quadrant ultrasound could be obtained, as needed. Electronically signed by: Criselda Quach On 05/04/2019 20:53:41 PM
[2019-05-04] MEDS ORDERED: CIPR-249 PO (21:15)
[2019-05-04] MEDS ORDERED: NORC1TAB7 PO (21:15)
[2019-05-04] MEDS ORDERED: ZOFR4TAB16 PO (21:15)
[2019-05-04] MEDS ORDERED: FLAG500T PO (21:15)
[2019-05-04] MEDS ORDERED: CIPROFLOXACIN 500 MG TAB PO ONE (21:30)
[2019-05-04] MEDS ORDERED: metroNIDAZOLE (FLAGYL) 500 MG TAB PO ONE (21:30)
[2019-05-04 21:32] VITALS: BP 138/70
--- NOTE | 2019-05-05 13:05 | ED PDOC ---
Post-Departure Follow-Up dr chávez faxed formal report of ct abd/p for fu Pao Raman MD May 05, 2019 13:05
--- NOTE | 2019-05-06 07:35 | ECGEPIP ---
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
== END 2019-05-04 21:30 | disposition home or self-care (01) ==
LOC: M ED 16:00
DX: K57.32 Diverticulitis of large intestine without perforation or abscess without bleeding (principal); R10.11 Right upper quadrant pain; K80.20 Calculus of gallbladder without cholecystitis without obstruction; F41.9 Anxiety disorder, unspecified; F32.9 Major depressive disorder, single episode, unspecified; Z87.891 Personal history of nicotine dependence; F12.10 Cannabis abuse, uncomplicated; Z88.8 Allergy status to other drugs, medicaments and biological substances
CPT/HCPCS: 74177; 76705; 80048; 80076; 82550; 82553; 83690; 85025; 93005; 96361; 96374; 96375; 99284; J1885; J2405; Q9967

== ENCOUNTER → 2019-06-17 | Outpatient (CLI) | payer BC ==
[~2019-06-17] MED LIST changes: +CAPS42.53 TOP; +CIPR-249 PO; +FLAG500T PO; +NORC1TAB7 PO; +TRAM50TA2 PO; +ZOFR4TAB16 PO; -[UNRECOGNIZED DRUG - CODE] TOP
--- NOTE | 2019-06-17 12:47 | REP ---
HIDA SCAN WITH GALLBLADDER EJECTION FRACTION: Following the intravenous administration of 6.4 millicuries of technetium 99m Mebrofenin, multiple images of the right upper quadrant are performed every 5 minutes for a period of 1 hour. Gallbladder is visualized at 10 minutes post injection. There is biliary to bowel transit 30 minutes post injection with no scintigraphic evidence of cholecystitis. At the 1-hour richard, 8 ounces of Ensure Enlive is ingested and further imaging performed for 1 hour. Gallbladder activity is measured and the gallbladder ejection fraction is calculated to be 74%, which is normal. IMPRESSION: Normal gallbladder ejection fraction. Electronically Signed by Anders Love MD 06/19/2019 12:58 P
== END ==
LOC: M RAD 08:41
PROVIDERS: ATTEND Surgery
DX: R10.11 Right upper quadrant pain (principal)
CPT/HCPCS: 78227; A9537; J2805

== ENCOUNTER 2019-06-24 08:46 | Day surgery (SDC) | payer BC ==
[~2019-06-24] VITALS: Ht 165.1 cm; Wt 64.6 kg
[~2019-06-24 08:46] MED LIST changes: +NS 1,000 ML IV ONE
[2019-06-24] MEDS ORDERED: LIDOCAINE 2% INJ 100 MG/5 ML SDV (FOR ANES.) As Ordered ONE (10:45)
[2019-06-24] MEDS ORDERED: PROPOFOL 200 MG/20 ML VIAL As Ordered ONE ×2 (10:45→10:46)
--- NOTE | 2019-06-24 11:08 | ROOR ---
Patient Name: Rachana Lopez Procedure Date: 06/24/2019 10:34 AM Date of : 1965 Age: 54 Room: [facility] Gender: Female Note Status: Finalized Procedure: Upper GI endoscopy Indications: Dysphagia Providers: Anders Grant DO Referring MD: Ramila LEWIS DO Requesting Provider: Medicines: Propofol per Anesthesia Complications: No immediate complications. Procedure: Pre-Anesthesia Assessment: - Prior to the procedure, a History and Physical was performed, and patient medications and allergies were reviewed. The patient is competent. The risks and benefits of the procedure and the sedation options and risks were discussed with the patient. All questions were answered and informed consent was obtained. Patient identification and proposed procedure were verified by the physician, the nurse, the anesthesiologist and the cnc technician in the endoscopy suite. Mental Status Examination: alert and oriented. Airway Examination: normal oropharyngeal airway and neck mobility. Respiratory Examination: clear to auscultation. CV Examination: normal. Prophylactic Antibiotics: The patient does not require prophylactic antibiotics. Prior Anticoagulants: The patient has taken no previous anticoagulant or antiplatelet agents. ASA Grade Assessment: II - A patient with mild systemic disease. After reviewing the risks and benefits, the patient was deemed in satisfactory condition to undergo the procedure. The anesthesia plan was to use monitored anesthesia care (MAC). Immediately prior to administration of medications, the patient was re-assessed for adequacy to receive sedatives. The heart rate, respiratory rate, oxygen saturations, blood pressure, adequacy of pulmonary ventilation, and response to care were monitored throughout the procedure. The physical status of the patient was re-assessed after the procedure. The Endoscope was introduced through the mouth, and advanced to the third part of duodenum. The upper GI endoscopy was accomplished without difficulty. The patient tolerated the procedure well. Findings: Localized minimal inflammation characterized by erythema was found in the prepyloric region of the stomach. Localized moderate inflammation characterized by congestion (edema), erythema and friability was found in the duodenal bulb. Impression: - Gastritis. - Duodenitis. - No specimens collected. Recommendation: - Patient has a contact number available for emergencies. The signs and symptoms of potential delayed complications were discussed with the patient. Return to normal activities tomorrow. Written discharge instructions were provided to the patient. - Return to my office as previously scheduled. Anders Grant DO 06/24/2019 11:07:58 AM Electronically signed by Anders Grant DO Number of Addenda: 0 Note Initiated On: 06/24/2019 10:34 AM Estimated Blood Loss: Estimated blood loss: none.
--- NOTE | 2019-06-24 11:12 | ROOR ---
Patient Name: Rachana Lopez Procedure Date: 06/24/2019 10:35 AM Date of : 1965 Age: 54 Room: [facility] Gender: Female Note Status: Finalized Procedure: Colonoscopy Indications: Colitis, presumed infectious Providers: Anders Grant DO Referring MD: Ramila LEWIS DO Requesting Provider: Medicines: Propofol per Anesthesia Complications: No immediate complications. Procedure: Pre-Anesthesia Assessment: - Prior to the procedure, a History and Physical was performed, and patient medications and allergies were reviewed. The patient is competent. The risks and benefits of the procedure and the sedation options and risks were discussed with the patient. All questions were answered and informed consent was obtained. Patient identification and proposed procedure were verified by the physician, the nurse, the anesthesiologist and the controls technician in the endoscopy suite. Mental Status Examination: alert and oriented. Airway Examination: normal oropharyngeal airway and neck mobility. Respiratory Examination: clear to auscultation. CV Examination: normal. Prophylactic Antibiotics: The patient does not require prophylactic antibiotics. Prior Anticoagulants: The patient has taken no previous anticoagulant or antiplatelet agents. ASA Grade Assessment: II - A patient with mild systemic disease. After reviewing the risks and benefits, the patient was deemed in satisfactory condition to undergo the procedure. The anesthesia plan was to use monitored anesthesia care (MAC). Immediately prior to administration of medications, the patient was re-assessed for adequacy to receive sedatives. The heart rate, respiratory rate, oxygen saturations, blood pressure, adequacy of pulmonary ventilation, and response to care were monitored throughout the procedure. The physical status of the patient was re-assessed after the procedure. The Colonoscope was introduced through the anus with the intention of advancing to the cecum. The scope was advanced to the sigmoid colon before the procedure was aborted. Medications were not given. The colonoscopy was aborted due to the extreme difficulty of the procedure. The colonoscopy was technically difficult and complex due to a tortuous colon. Findings: The sigmoid colon was grossly tortuous. Estimated blood loss: none. The exam was otherwise without abnormality on direct and retroflexion views. Impression: - The procedure was aborted due to the extreme difficulty of the procedure. - Tortuous colon. - The examination was otherwise normal on direct and retroflexion views. - No specimens collected. Recommendation: - Patient has a contact number available for emergencies. The signs and symptoms of potential delayed complications were discussed with the patient. Return to normal activities tomorrow. Written discharge instructions were provided to the patient. - Perform a single contrast barium enema today. Anders Grant DO 06/24/2019 11:12:12 AM Electronically signed by Anders Grant DO Number of Addenda: 0 Note Initiated On: 06/24/2019 10:35 AM Estimated Blood Loss: Estimated blood loss: none.
[2019-06-24] MEDS ORDERED: VoLumen 0.1% SUSPENSION 450ML BOTTLE As Ordered ONE (11:38)
[2019-06-24] MEDS ORDERED: LIQUID POLIBAR PLUS 105% w/v 1900ML BTL As Ordered ONE (11:39)
[2019-06-24 11:40] VITALS: BP 156/78
--- NOTE | 2019-06-25 11:11 | REP ---
BARIUM ENEMA AIR CONTRAST The procedure was performed under the direct supervision of Dr. Love. The images were reviewed with Dr. Love. The patient is status post incomplete colonoscopy. The management scientist film shows no organomegaly or pathological masses. The test gas pattern is nonspecific. Liquid barium and air were instilled into the colon in a retrograde flow of the barium air mixture. The sigmoid colon is redundant and there are innumerable diverticula which limits evaluation for polyps. There is free flow of contrast to the cecum. The colon is otherwise normal in position and contour. Haustration is unremarkable throughout. There are a few mobile filling defects seen throughout the examination consistent with small stool particles from incomplete cleansing. There are no annular constricting lesions identified. There are scattered diverticula seen throughout the remainder of the colon. Impression: The sigmoid colon is redundant and there are innumerable diverticula which limits evaluation. There are scattered diverticula seen throughout the remainder of the colon. Otherwise, there contrast barium enema within normal limits. 2.1 minutes of fluoroscopy time was utilized for this procedure. Reviewed by ANGEL Jordan 06/24/2019 04:36 P Electronically Signed by Anders Love MD 06/25/2019 11:02 A
[2019-07-07] MEDS ORDERED: FLAG500T PO (16:28)
[2019-07-07] MEDS ORDERED: CIPR-249 PO (16:28)
== END 2019-06-24 11:49 | disposition home or self-care (01) ==
LOC: M OPP 08:46
PROVIDERS: ATTEND Surgery
DX: K52.9 Noninfective gastroenteritis and colitis, unspecified (principal); Q43.8 Other specified congenital malformations of intestine; R13.10 Dysphagia, unspecified; K29.70 Gastritis, unspecified, without bleeding; K29.80 Duodenitis without bleeding; I48.91 Unspecified atrial fibrillation; K57.32 Diverticulitis of large intestine without perforation or abscess without bleeding; M19.90 Unspecified osteoarthritis, unspecified site; F32.9 Major depressive disorder, single episode, unspecified; F41.9 Anxiety disorder, unspecified; F12.10 Cannabis abuse, uncomplicated; Z87.891 Personal history of nicotine dependence; Z91.048 Other nonmedicinal substance allergy status; Z88.8 Allergy status to other drugs, medicaments and biological substances; Z79.899 Other long term (current) drug therapy

== ENCOUNTER 2019-07-17 07:42 | Day surgery (SDC) | payer BC ==
[~2019-07-17] VITALS: Ht 162.6 cm; Wt 67.3 kg
[~2019-07-17 07:42] MED LIST changes: +LIDOCAINE 1% MDV 20ML VIAL SQ PRN; +LR 1,000 ML IV ONE; -NS 1,000 ML IV ONE
[2019-07-17] MEDS ORDERED: BUPIVACAINE/EPIN 0.25% 30 ML VIAL As Ordered ONE (09:29)
[2019-07-17] MEDS ORDERED: PROPOFOL 200 MG/20 ML VIAL As Ordered ONE (10:00)
[2019-07-17] MEDS ORDERED: ROCURONIUM BROMIDE 50 MG/5 ML VIAL As Ordered ONE (10:00)
[2019-07-17] MEDS ORDERED: MIDAZOLAM INJ 2 MG/2 ML VIAL (J2250) As Ordered ONE (10:00)
[2019-07-17] MEDS ORDERED: LIDOCAINE 2% INJ 100 MG/5 ML SDV (FOR ANES.) As Ordered ONE (10:00)
[2019-07-17] MEDS ORDERED: fentaNYL 100 MCG/2 ML INJECTION (J3010) As Ordered ONE ×3 (10:00→10:50)
[2019-07-17] MEDS ORDERED: ONDANSETRON 4MG/2ML VIAL (J2405) As Ordered ONE (10:00)
[2019-07-17] MEDS ORDERED: KETOROLAC 60 MG/2 ML VIAL (J1885) As Ordered ONE (10:00)
[2019-07-17] MEDS ORDERED: dexameTHASONE 4 MG/ML 1ML VIAL (J1100) As Ordered ONE (10:00)
[2019-07-17] MEDS ORDERED: SUGAMMADEX SODIUM 500 MG/5 ML VIAL (BRIDION) As Ordered ONE (10:12)
[2019-07-17] MEDS: fentaNYL 100 MCG/2 ML INJECTION (J3010) IV PRN ×4 (10:48→11:03)
[2019-07-17] MEDS: LABETALOL HCL 100 MG/20 ML VIAL IV SCH ×5 (11:04→11:24)
[2019-07-17] MEDS: MORPHINE 10 MG/ML 1ML VIAL (J2270) IV PRN ×3 (11:07→11:27)
[2019-07-17] MEDS ORDERED: MORPHINE 10 MG/ML 1ML VIAL (J2270) As Ordered ONE (11:09)
[2019-07-17] MEDS ORDERED: LABETALOL HCL 100 MG/20 ML VIAL As Ordered ONE (11:09)
[2019-07-17] MEDS ORDERED: PERCOCET 5MG/325MG TAB PO PRN (11:15)
[2019-07-17] MEDS ORDERED: MEPERIDINE INJ 25 MG/ML VIAL (J2175) IV PRN (11:15)
[2019-07-17] MEDS ORDERED: KETOROLAC 30 MG/ML VIAL (J1885) IV PRN (11:15)
[2019-07-17] MEDS ORDERED: METOCLOPRAMIDE INJ 10MG/2ML VIAL (J2765) IV PRN (11:15)
[2019-07-17] MEDS ORDERED: NORCO, ANEXSIA 5/325MG TABLET (HYDROcodone/ACETAMINOPHEN) PO PRN (11:15)
[2019-07-17] MEDS ORDERED: ONDANSETRON 4MG/2ML VIAL (J2405) IV PRN (11:15)
[2019-07-17] MEDS ORDERED: LR 1,000 ML IV SCH (11:15)
[2019-07-17 13:40] VITALS: BP 130/76
--- NOTE | 2019-07-21 15:09 | RO ---
DATE OF PROCEDURE: 07/17/2019 PREOPERATIVE DIAGNOSIS: Symptomatic cholelithiasis. POSTOPERATIVE DIAGNOSIS: Symptomatic cholelithiasis. PROCEDURE: Laparoscopic cholecystectomy. SURGEON: Dr. Grant FABRIC AND ACCESSORIES ESTIMATOR: None. ANESTHESIA: General. ESTIMATED BLOOD LOSS: 5. COMPLICATIONS: None. INDICATION FOR PROCEDURE: The patient is a 54-year-old who presents with right upper quadrant pain and found have symptomatic cholelithiasis. Recommendation was to proceed with laparoscopicm, possible open cholecystectomy. Risks and benefits of the of procedure not limited to, but including bleeding, infection, hernia formation, damage to surrounding structures, need for further surgery were discussed detail with the patient. Informed consent was obtained. Procedure was planned. PROCEDURE: The patient was brought back to operating room #8. After sufficient sedation, the abdomen was sterilely prepped and draped. Next, a time-out was done to confirm proper patient and proper procedure. Following that an 11 mm incision made in the left lower quadrant. Veress needle was inserted and the abdomen was insufflated to 50 mmHg. Next, a 5 mm supraumbilical midline incision was made and a 5 mm Optiview port was used to enter the abdomen. Once the abdomen was entered, Veress needle site was examined and there was no signs of any injury. The Veress needle was removed and replaced with an 11 mm port. Two more 5 mm ports were placed in the upper quadrant. The fundus of the gallbladder was elevated up towards the right shoulder. The cystic duct and cystic artery were dissected using blunt and sharp dissection. Once they were both clearly identified, they were both doubly clipped and cut. The gallbladder was then removed from gallbladder fossa using electrocautery, brought out in a 10 mm EndoCatch bag through the subxiphoid port site. The abdomen was then desufflated. Skin incisions closed with #4-0 Vicryl subcuticular sutures. The abdomen was cleaned and dried. Steri-Strips, 4 x 4, and tape were applied, thus ending procedure.
== END 2019-07-17 13:59 | disposition home or self-care (01) ==
LOC: M SDC 07:42
PROVIDERS: ATTEND Surgery
DX: K80.10 Calculus of gallbladder with chronic cholecystitis without obstruction (principal); Z86.79 Personal history of other diseases of the circulatory system; Z88.8 Allergy status to other drugs, medicaments and biological substances; Z79.899 Other long term (current) drug therapy; Z87.891 Personal history of nicotine dependence; F41.9 Anxiety disorder, unspecified; F32.9 Major depressive disorder, single episode, unspecified
CPT/HCPCS: 47562; 88304; J1100; J1885; J2250; J2270; J2405; J3010

== ENCOUNTER → 2020-01-07 | Outpatient (REF) | payer BC ==
[~2020-01-07] MED LIST changes: -LIDOCAINE 1% MDV 20ML VIAL SQ PRN; -LR 1,000 ML IV ONE
== END ==
LOC: M LAB REF 15:37
PROVIDERS: ATTEND Nurse Practitioner
DX: L82.1 Other seborrheic keratosis (principal)

== ENCOUNTER → 2020-01-07 | Outpatient (CLI) | payer BC ==
--- NOTE | 2020-01-07 21:57 | REPPI ---
Clinical: Intractable pain. Technique: AP, lateral, bilateral oblique, and coned-down views of the lumbosacral spine. Comparison: 09/10/2007. Findings: Alignment and lordosis maintained. Vertebral bodies are intact without acute fracture / compression injury or subluxation. Minimal endplate sclerosis facet arthropathy and subtle disc space narrowing at L5-S1 unchanged. No further significant degenerative changes appreciated by radiographic evaluation. No spondylolysis or spondylolisthesis noted. Impression: Mild degenerative spondylosis at L5-L1. Electronically Signed by Kelton Mojica MD 01/07/2020 09:49 P
--- NOTE | 2020-01-07 21:59 | REPPI ---
Clinical: Intractable pain and headache. Technique: AP, lateral, flexion/extension, bilateral oblique and open mouth views of the cervical spine. Findings: Moderate degenerative disc osteophyte complex noted at the C4-5 and C5-6 along with early advanced degenerative disc osteophyte complex at C6-7. Alignment is maintained. No acute fracture / compression injury or subluxation. Oblique views demonstrate associated neural foraminal narrowing. Open mouth view demonstrates normal C1-C2 articulation and odontoid process. Impression: Moderate/early advanced degenerative spondylosis. Electronically Signed by Kelton Mojica MD 01/07/2020 09:51 P
== END ==
LOC: M PLAIMG 12:17
PROVIDERS: ATTEND Family Medicine
DX: M47.812 Spondylosis without myelopathy or radiculopathy, cervical region (principal); M47.817 Spondylosis without myelopathy or radiculopathy, lumbosacral region; G44.201 Tension-type headache, unspecified, intractable

== ENCOUNTER 2020-01-26 12:58 | Outpatient (RCR) | payer BC | END 2020-01-30 | LOC: M PT 12:58 | PROVIDERS: ATTEND Family Medicine | DX: M54.5 Low back pain (principal) ==

== ENCOUNTER → 2020-02-05 | Outpatient (REF) | payer BC, SELFPAY ==
[2020-02-05 12:08] LABS: BASO # 0.1 10^3/uL (0.0-0.2); BASO % 0.9 % (0.0-1.0); EOS # 0.1 10^3/uL (0.0-0.5); EOS % 1.7 % (0.0-3.0); HEMATOCRIT 41.8 % (36.0-47.0); HEMOGLOBIN 13.1 g/dl (12.0-15.5); LYMPH # 2.3 10^3/uL (1.5-5.0); LYMPH % 27.5 % (24.0-44.0); MEAN CORPUSCULAR HEMOGLOBIN 29.3 pg (27.0-33.0); MEAN CORPUSCULAR HGB CONC 31.3 g/dl (32.0-36.5); MEAN CORPUSCULAR VOLUME 93.5 fl (80.0-96.0); MONO # 0.6 10^3/uL (0.0-0.8); MONO % 7.2 % (0.0-5.0); NEUTROPHILS # 5.1 10^3/uL (1.5-8.5); NEUTROPHILS % 62.2 % (36.0-66.0); PLATELET COUNT, AUTOMATED 360 10^3/uL (150-450); RED BLOOD COUNT 4.47 10^6/uL (4.00-5.40); WHITE BLOOD COUNT 8.2 10^3/uL (4.0-10.0)
[2020-02-05 12:11] LABS: APPEARANCE, URINE CLEAR (CLEAR); BACTERIA, URINE AUTO 1+ (NEGATIVE); BILIRUBIN, URINE AUTO NEGATIVE (NEGATIVE); BLOOD, URINE BLOOD NEGATIVE (NEGATIVE); COLOR, URINE AMBER (YELLOW); GLUCOSE, URINE (UA) AUTO NEGATIVE (NEGATIVE); KETONE, URINE AUTO TRACE mg/dL (NEGATIVE); LEUKOCYTE ESTERASE, URINE AUTO 2+ (NEGATIVE); MUCUS, URINE SMALL (NEGATIVE); NITRITE, URINE AUTO NEGATIVE (NEGATIVE); PROTEIN, URINE AUTO NEGATIVE (NEGATIVE); RBC, URINE AUTO 5 /HPF (0-3); SPECIFIC GRAVITY URINE AUTO 1.027 (1.002-1.035); SQUAMOUS EPITHELIAL CELL UR AU 3 /HPF (0-6); UROBILINOGEN, URINE AUTO 0.2 mg/dL (0.0-2.0); WBC, URINE AUTO 15 /HPF (0-3)
[2020-02-05 12:12] LABS: BLOOD UREA NITROGEN 13 MG/DL (7-18); C REACTIVE PROTEIN QUANTITATIV 4.93 MG/DL (0.00-0.30); CARBON DIOXIDE LEVEL 32 MEQ/L (21-32); CHLORIDE LEVEL 103 MEQ/L (98-107); CREATININE FOR GFR 0.86 MG/DL (0.55-1.30); GLOMERULAR FILTRATION RATE > 60.0 (>51); GLUCOSE, FASTING 106 MG/DL (70-100); LIPASE 207 U/L (73-393); POTASSIUM SERUM 4.3 MEQ/L (3.5-5.1); SODIUM LEVEL 139 MEQ/L (136-145)
== END ==
LOC: M SFHCPLAZ 08:44
PROVIDERS: ATTEND Family Medicine
DX: R10.30 Lower abdominal pain, unspecified (principal)

== ENCOUNTER → 2020-02-05 | Outpatient (CLI) | payer BC, SELFPAY ==
--- NOTE | 2020-02-05 11:47 | REPPI ---
KUB ABDOMEN AND PELVIS: KUB film of the abdomen and pelvis performed. There is moderate fecal material scattered throughout the colon. No dilated small bowel loops are seen. Metallic clips are seen in the right upper quadrant. Phleboliths are seen in the pelvis. There are mild degenerative changes of the spine. IMPRESSION: Moderate fecal material throughout the colon. No evidence of bowel obstruction. Electronically Signed by Anders Love MD 02/09/2020 03:27 P
== END ==
LOC: M PLAIMG 09:30
PROVIDERS: ATTEND Family Medicine
DX: K59.00 Constipation, unspecified (principal); R10.30 Lower abdominal pain, unspecified

== ENCOUNTER 2020-02-24 13:00 | Outpatient (RCR) | payer BC | END 2020-03-01 | LOC: M PT 13:00 | PROVIDERS: ATTEND Family Medicine | DX: M54.5 Low back pain (principal) ==

== ENCOUNTER → 2020-03-01 | Outpatient (REF) | payer BC ==
[2020-03-01 13:48] LABS: BASO # 0.1 10^3/uL (0.0-0.2); BASO % 1.1 % (0.0-1.0); EOS # 0.2 10^3/uL (0.0-0.5); EOS % 2.3 % (0.0-3.0); HEMATOCRIT 42.8 % (36.0-47.0); HEMOGLOBIN 13.5 g/dl (12.0-15.5); LYMPH # 2.8 10^3/uL (1.5-5.0); LYMPH % 33.7 % (24.0-44.0); MEAN CORPUSCULAR HEMOGLOBIN 30.2 pg (27.0-33.0); MEAN CORPUSCULAR HGB CONC 31.5 g/dl (32.0-36.5); MEAN CORPUSCULAR VOLUME 95.7 fl (80.0-96.0); MONO # 0.6 10^3/uL (0.0-0.8); MONO % 7.5 % (0.0-5.0); NEUTROPHILS # 4.5 10^3/uL (1.5-8.5); NEUTROPHILS % 55.2 % (36.0-66.0); PLATELET COUNT, AUTOMATED 324 10^3/uL (150-450); RED BLOOD COUNT 4.47 10^6/uL (4.00-5.40); WHITE BLOOD COUNT 8.2 10^3/uL (4.0-10.0)
[2020-03-01 13:52] LABS: BLOOD UREA NITROGEN 18 MG/DL (7-18); CALCIUM LEVEL 9.6 MG/DL (8.5-10.1); CARBON DIOXIDE LEVEL 35 MEQ/L (21-32); CHLORIDE LEVEL 103 MEQ/L (98-107); CREATININE FOR GFR 0.87 MG/DL (0.55-1.30); GLOMERULAR FILTRATION RATE > 60.0 (>51); GLUCOSE, FASTING 108 MG/DL (70-100); POTASSIUM SERUM 5.6 MEQ/L (3.5-5.1); SODIUM LEVEL 139 MEQ/L (136-145)
[2020-03-01 13:54] LABS: APPEARANCE, URINE HAZY (CLEAR); BACTERIA, URINE AUTO NEGATIVE (NEGATIVE); BILIRUBIN, URINE AUTO NEGATIVE (NEGATIVE); BLOOD, URINE BLOOD NEGATIVE (NEGATIVE); COLOR, URINE YELLOW (YELLOW); GLUCOSE, URINE (UA) AUTO NEGATIVE (NEGATIVE); KETONE, URINE AUTO NEGATIVE (NEGATIVE); LEUKOCYTE ESTERASE, URINE AUTO NEGATIVE (NEGATIVE); MUCUS, URINE SMALL (NEGATIVE); NITRITE, URINE AUTO NEGATIVE (NEGATIVE); PROTEIN, URINE AUTO NEGATIVE (NEGATIVE); RBC, URINE AUTO 1 /HPF (0-3); SPECIFIC GRAVITY URINE AUTO 1.025 (1.002-1.035); SQUAMOUS EPITHELIAL CELL UR AU 0 /HPF (0-6); UROBILINOGEN, URINE AUTO 0.2 mg/dL (0.0-2.0); WBC, URINE AUTO 2 /HPF (0-3)
[2020-03-01 16:07] LABS: MAGNESIUM LEVEL 2.3 MG/DL (1.8-2.4)
== END ==
LOC: M SFHCPLAZ 08:54
PROVIDERS: ATTEND Family Medicine
DX: R10.2 Pelvic and perineal pain (principal)

== ENCOUNTER → 2020-03-02 | Outpatient (REF) | payer BC ==
[2020-03-02 14:58] LABS: BLOOD UREA NITROGEN 18 MG/DL (7-18); CALCIUM LEVEL 9.3 MG/DL (8.5-10.1); CARBON DIOXIDE LEVEL 35 MEQ/L (21-32); CHLORIDE LEVEL 102 MEQ/L (98-107); GLOMERULAR FILTRATION RATE > 60.0 (>51); GLUCOSE, FASTING 117 MG/DL (70-100); POTASSIUM SERUM 4.7 MEQ/L (3.5-5.1); SODIUM LEVEL 136 MEQ/L (136-145)
== END ==
LOC: M PLALAB 13:56
PROVIDERS: ATTEND Family Medicine
DX: R10.2 Pelvic and perineal pain (principal)

== ENCOUNTER → 2020-04-05 | Outpatient (CLI) | payer BC | LOC: M WHC 10:47 | PROVIDERS: ATTEND Obstetrics & Gynecology | DX: N93.9 Abnormal uterine and vaginal bleeding, unspecified (principal) ==

== ENCOUNTER → 2020-04-14 | Outpatient (CLI) | payer BC ==
--- NOTE | 2020-04-15 03:21 | REP ---
Clinical: Abnormal uterine bleeding . Technique: Transabdominal pelvic ultrasound. Findings: Bladder is unremarkable and measures approximately 9.6 x 5.9 x 7.1 cm . Heterogeneous anteverted uterus measures 7.5 x 3.3 x 4.0 cm . The endometrial complex measures 3.4 mm thickness. No discrete uterine or endometrial abnormalities are appreciated. Bilateral ovaries are normal in appearance. Right ovary measures 2.0 x 1.2 x 2.0 cm ; Left ovary measures 1.8 x 1.0 x 1.5 cm. No pelvic fluid or adnexal mass lesion. . Impression: 1. Heterogeneous myometrial echotexture is nonspecific. Evaluation was somewhat limited due to technical factors including body habitus and overlying bowel gas.
== END ==
LOC: M WHC 14:18
PROVIDERS: ATTEND Obstetrics & Gynecology
DX: N93.9 Abnormal uterine and vaginal bleeding, unspecified (principal)

== ENCOUNTER → 2020-06-10 | Outpatient (REF) | payer BC ==
[~2020-06-10] MED LIST changes: -CAPS42.53 TOP; +CAPS42.54 TOP; +CLON0.5T2 PO; +FLUO60TA6 PO; +GABA-845 PO; +METH4PACK PO; +MOBI15TA PO; +NAPR-885 PO; +OMEP-218 PO; +ROBA750T4 PO; +ROLLMIS8 XX
[2020-06-10 13:59] LABS: AMORPHOUS SEDIMENT LARGE (NEGATIVE); APPEARANCE, URINE TURBID (CLEAR); BACTERIA, URINE AUTO NEGATIVE (NEGATIVE); BILIRUBIN, URINE AUTO NEGATIVE (NEGATIVE); BLOOD, URINE BLOOD 2+ (NEGATIVE); COLOR, URINE YELLOW (YELLOW); GLUCOSE, URINE (UA) AUTO NEGATIVE (NEGATIVE); KETONE, URINE AUTO NEGATIVE (NEGATIVE); LEUKOCYTE ESTERASE, URINE AUTO NEGATIVE (NEGATIVE); MUCUS, URINE LARGE (NEGATIVE); NITRITE, URINE AUTO NEGATIVE (NEGATIVE); PROTEIN, URINE AUTO 2+ mg/dL (NEGATIVE); RBC, URINE AUTO 2 /HPF (0-3); SPECIFIC GRAVITY URINE AUTO 1.024 (1.002-1.035); SQUAMOUS EPITHELIAL CELL UR AU 2 /HPF (0-6); WBC, URINE AUTO 3 /HPF (0-3)
== END ==
LOC: M SFHCPLAZ 12:56
PROVIDERS: ATTEND Family Medicine
DX: R35.0 Frequency of micturition (principal)

== ENCOUNTER → 2020-08-09 | Outpatient (CLI) | payer BC ==
--- NOTE | 2020-08-30 14:56 | REP ---
ABDOMINAL ULTRASOUND: FINDINGS: Real time sonographic evaluation of the abdomen is performed. The patient has had a prior cholecystectomy. There is no intrahepatic or extrahepatic biliary dilatation, the common bile duct measuring 3 mm. The liver is slightly enlarged with a length of approximately 17.2 cm. No gross liver or pancreatic mass is seen. The pancreas is not well seen due to overlying bowel gas. The spleen is normal in size with no intrinsic abnormality, measuring 9.3 x 4.0 x 8.5 cm. The kidney is normal in size and echotexture, the right kidney measuring 11.6 x 4.9 x 4.2 cm and the left kidney measuring 11.1 x 4.1 x 4.9 cm. There is no renal mass, hydronephrosis or nephrolithiasis identified. There is no evidence of abdominal aortic aneurysm. The proximal abdominal aorta measures 2.2 cm in maximal AP dimension and distally, 1.5 cm. No ascites is seen. There is an enlarged para-aortic lymph node measuring 2.1 cm in length and approximately 1.4 cm in short axis dimension. There appears to be an enlarged lymph node in the right lower quadrant measuring 4.5 x 2.2 x 3.1 cm. IMPRESSION: Status post cholecystectomy without biliary dilatation or free fluid. Mild hepatomegaly. Mildly enlarged lymph node along the mid-abdominal aorta, enlarged lymph node right lower quadrant, as discussed above. Complete evaluation for adenopathy in the abdomen and pelvis may be obtained with CT abdomen and pelvis. MTDD
== END ==
LOC: M RAD 07:58
PROVIDERS: ATTEND Internal Medicine Gastroenterology
DX: R16.0 Hepatomegaly, not elsewhere classified (principal); R10.13 Epigastric pain; R59.0 Localized enlarged lymph nodes

== ENCOUNTER → 2020-08-17 | Outpatient (CLI) | payer BC ==
[2020-08-17 15:44] LABS: ALBUMIN 3.8 GM/DL (3.2-5.2); ALT/SGPT 27 U/L (12-78); BILIRUBIN,DIRECT 0.1 MG/DL (0.0-0.2); BILIRUBIN,TOTAL 0.6 MG/DL (0.2-1.0); BLOOD UREA NITROGEN 12 MG/DL (7-18); CREATININE FOR GFR 0.88 MG/DL (0.55-1.30); GLOMERULAR FILTRATION RATE > 60.0 (>51); TOTAL PROTEIN 7.6 GM/DL (6.4-8.2)
[2020-08-18 08:43] LABS: H PYLORI QUALITATIVE IgG NEGATIVE (NEGATIVE)
[2020-08-20 06:08] LABS: IGASUB3 79.1 mg/dL (13.4-97.9); IgA SERUM (part of Subclasses) 343 mg/dL (87-352); TISSUE TRANSGLUTAMINASE IgA <2 U/mL (0-3)
== END ==
LOC: M PLALAB 12:08
PROVIDERS: ATTEND Internal Medicine Gastroenterology
DX: R10.13 Epigastric pain (principal)

== ENCOUNTER → 2020-08-25 | Outpatient (CLI) | payer BC ==
--- NOTE | 2020-09-02 09:20 | REPPI ---
LUMBAR SPINE CLINICAL: Lower back pain. COMPARISON: 01/07/2020. FINDINGS: Alignment and lordosis maintained. Vertebral bodies intact. No acute fracture/compression injury or subluxation. Essentially age-related changes are appreciated. Minimal endplate sclerosis and subtle facet arthropathy at L5-S1 cannot be excluded. Findings are relatively stable compared to prior exam. IMPRESSION: Essentially age-related changes. No acute fracture/compression injury or subluxation. [facility]
== END ==
LOC: M PLAIMG 13:52
PROVIDERS: ATTEND Family Medicine
DX: M54.5 Low back pain (principal)

== ENCOUNTER 2020-08-26 16:45 | Emergency (ER) | payer BC ==
[~2020-08-26] VITALS: Ht 162.6 cm; Wt 78.5 kg
[~2020-08-26 16:45] MED LIST changes: -GABA-845 PO; -METH4PACK PO; -MOBI15TA PO; -OMEP-218 PO; -ROBA750T4 PO; -ROLLMIS8 XX
[2020-08-26] MEDS ORDERED: ASPIRIN 81 MG CHEW TABLET PO ONE (17:15)
--- NOTE | 2020-08-26 17:24 | REPVR ---
PROCEDURE INFORMATION: Exam: XR Chest, 1 View Exam date and time: 08/26/2020 5:08 PM Age: 55 years old Clinical indication: Chest pain; Type not specified TECHNIQUE: Imaging protocol: XR of the chest Views: 1 view. COMPARISON: CR Chest, 2 view PA, Lat 02/12/2019 8:20 PM FINDINGS: Lungs: There is trace linear atelectasis or scar at the left base. No pneumonia or pulmonary edema. Pleural space: Unremarkable. No pleural effusion. No pneumothorax. Heart/Mediastinum: Unremarkable. No cardiomegaly. Bones/joints: No acute osseous abnormality. IMPRESSION: 1. No acute cardiopulmonary abnormality. Trace linear atelectasis or scar at the left lung base. Electronically signed by: Josefa Perez On 08/26/2020 17:23:58 PM
[2020-08-26 17:26] LABS: BASO # 0.1 10^3/uL (0.0-0.2); BASO % 0.9 % (0.0-1.0); EOS # 0.1 10^3/uL (0.0-0.5); EOS % 1.3 % (0.0-3.0); HEMATOCRIT 44.2 % (36.0-47.0); HEMOGLOBIN 14.1 g/dl (12.0-15.5); LYMPH # 2.9 10^3/uL (1.5-5.0); LYMPH % 32.8 % (24.0-44.0); MEAN CORPUSCULAR HEMOGLOBIN 29.1 pg (27.0-33.0); MEAN CORPUSCULAR HGB CONC 31.9 g/dl (32.0-36.5); MEAN CORPUSCULAR VOLUME 91.1 fl (80.0-96.0); MONO # 0.6 10^3/uL (0.0-0.8); MONO % 7.1 % (0.0-5.0); NEUTROPHILS % 57.7 % (36.0-66.0); PLATELET COUNT, AUTOMATED 318 10^3/uL (150-450); RED BLOOD COUNT 4.85 10^6/uL (4.00-5.40); WHITE BLOOD COUNT 8.7 10^3/uL (4.0-10.0)
[2020-08-26] MEDS ORDERED: GABA-845 PO (17:26)
[2020-08-26] MEDS ORDERED: ISOVUE-370 76% 100ML VIAL As Ordered ONE (17:30)
[2020-08-26] MEDS ORDERED: ROBA750T4 PO (17:38)
[2020-08-26 17:41] LABS: INR 0.96; PROTHROMBIN TIME 12.9 SECONDS (12.5-14.3)
--- NOTE | 2020-08-26 18:00 | REPVR ---
PROCEDURE INFORMATION: Exam: US Duplex Right Lower Extremity Veins, Limited Exam date and time: 08/26/2020 5:41 PM Age: 55 years old Clinical indication: Swelling (edema) of limb; Lower extremity, right; Additional info: Rle pain TECHNIQUE: Imaging protocol: Real-time Duplex ultrasound of the Right Lower Extremity with 2-D palafox scale, color Doppler flow and spectral waveform analysis with image documentation. Limited exam was focused on the right lower extremity veins. COMPARISON: No relevant prior studies available. FINDINGS: Right deep veins: Unremarkable. The common femoral, femoral, proximal profunda femoral and popliteal veins are patent without thrombus. Normal Doppler waveforms. Normal compressibility and/or augmentation response. Right superficial veins: Unremarkable. Saphenofemoral junction is patent without thrombus. Soft tissues: Unremarkable. IMPRESSION: No sonographic evidence of deep vein thrombosis. Electronically signed by: Josefa Perez On 08/26/2020 18:00:50 PM
[2020-08-26 18:04] LABS: ALBUMIN 3.5 GM/DL (3.2-5.2); ALT/SGPT 24 U/L (12-78); BILIRUBIN,DIRECT < 0.1 MG/DL (0.0-0.2); BILIRUBIN,TOTAL 0.3 MG/DL (0.2-1.0); FREE T4 0.89 NG/DL (0.76-1.46); LIPASE 528 U/L (73-393); TOTAL PROTEIN 6.8 GM/DL (6.4-8.2)
--- NOTE | 2020-08-26 18:33 | ECGEPIP ---
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
--- NOTE | 2020-08-26 18:36 | REPVR ---
PROCEDURE INFORMATION: Exam: CT Angiography Chest With Contrast Exam date and time: 08/26/2020 5:46 PM Age: 55 years old Clinical indication: Chest pain TECHNIQUE: Imaging protocol: Computed tomographic angiography of the chest with intravenous contrast. 3D rendering (Not supervised by radiologist): MIP and/or 3D reconstructed images were created by the technologist. Radiation optimization: All CT scans at this facility use at least one of these dose optimization techniques: automated exposure control; mA and/or kV adjustment per patient size (includes targeted exams where dose is matched to clinical indication); or iterative reconstruction. Contrast material: ISOVUE 370; Contrast volume: 75 ml; Contrast route: INTRAVENOUS (IV); COMPARISON: 1. CR PORTABLE CHEST X-RAY 08/26/2020 5:02 PM 2. CR - SPINE CERVICAL COMPLETE 01/07/2020 12:30:09 [address] GA - CT ANGIO CHEST 07/05/2018 8:45:51 AM FINDINGS: Pulmonary arteries: There is no filling defect in the pulmonary arteries bilaterally to indicate pulmonary emboli. Pulmonary arteries are normal in caliber. Aorta: Unremarkable. No aortic aneurysm. No aortic dissection. Thyroid: The thyroid is enlarged, without discrete measurable nodule identified. The left thyroid lobe extend slightly into the superior mediastinum. Lungs: There is minimal nodular atelectasis or scar in the medial aspect of the right middle lobe and lingula at the lung bases. Trace posterior dependent atelectasis at the lung bases. No pneumonia or pulmonary edema. Pleural space: Unremarkable. No pneumothorax. No pleural effusion. Heart: Unremarkable. No cardiomegaly. No pericardial effusion. Mediastinal space: There is mild distal esophageal wall thickening suggesting esophagitis. Lymph nodes: Unremarkable. No enlarged lymph nodes. Bones/joints: Large posterior disc osteophyte complex and posterior disc bulge as well as degenerative facet disease results in severe central canal and neural foraminal narrowing at C6-C7, where the spinal canal measures as little as 7 mm in anterior-posterior dimension. There is overall ill-defined slightly increased lucency in the T5 vertebral body, of uncertain significance, new since 07/05/2018. However, discrete measurable lesion is not identified. Soft tissues: Unremarkable. IMPRESSION: 1. No evidence of pulmonary embolism. 2. Severe central canal and neural foraminal narrowing at C6-C7 with the spinal canal measuring as little as 7 mm in anterior-posterior dimension because of a combination of large posterior disc osteophyte complex with disc bulge and degenerative facet disease. Consider further evaluation with MR of the cervical spine particularly given the severity of the central canal narrowing. 3. Findings suggesting mild distal esophagitis. 4. Minimal nodular atelectasis or scar in the right middle lobe and lingula at the lung bases, with trace posterior dependent atelectasis at the lung bases. 5. Thyromegaly. Electronically signed by: Josefa Perez On 08/26/2020 18:36:33 PM
[2020-08-26 20:47] VITALS: BP 120/78
--- NOTE | 2020-08-28 15:18 | ECGEPIP ---
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
--- NOTE | 2020-08-29 07:30 | ED PDOC ---
Post-Departure Follow-Up dr phoebe kelley faxed formal report of cta chest for fu Pao Raman MD Aug 29, 2020 07:30
[2020-09-14] MEDS ORDERED: MOBI15TA PO (10:35)
== END 2020-08-26 21:25 | disposition home or self-care (01) ==
LOC: M ED 16:45
DX: R07.89 Other chest pain (principal); K20.9 Esophagitis, unspecified; E01.0 Iodine-deficiency related diffuse (endemic) goiter; R93.89 Abnormal findings on diagnostic imaging of other specified body structures; M50.20 Other cervical disc displacement, unspecified cervical region; M50.30 Other cervical disc degeneration, unspecified cervical region; I48.91 Unspecified atrial fibrillation; M26.609 Unspecified temporomandibular joint disorder, unspecified side; F33.9 Major depressive disorder, recurrent, unspecified; F41.9 Anxiety disorder, unspecified; Z88.1 Allergy status to other antibiotic agents; Z91.048 Other nonmedicinal substance allergy status; Z79.899 Other long term (current) drug therapy
CPT/HCPCS: 36415; 71045; 71275; 80047; 80076; 83690; 84439; 84443; 85025; 85610; 85730; 93005; 93041; 93971; 94760; 99284; Q9967

== ENCOUNTER 2020-09-06 14:21 | Emergency (ER) | payer BC ==
[~2020-09-06] VITALS: Ht 162.6 cm; Wt 80.3 kg
[~2020-09-06 14:21] MED LIST changes: +GABA-845 PO; +ROBA750T4 PO
[2020-09-06] MEDS ORDERED: OMEP-218 PO (14:32)
[2020-09-06 15:25] LABS: BASO # 0.1 10^3/uL (0.0-0.2); BASO % 0.8 % (0.0-1.0); EOS # 0.2 10^3/uL (0.0-0.5); HEMATOCRIT 41.5 % (36.0-47.0); LYMPH # 2.2 10^3/uL (1.5-5.0); LYMPH % 27.4 % (24.0-44.0); MEAN CORPUSCULAR HEMOGLOBIN 29.1 pg (27.0-33.0); MEAN CORPUSCULAR HGB CONC 31.3 g/dl (32.0-36.5); MEAN CORPUSCULAR VOLUME 92.8 fl (80.0-96.0); MONO # 0.5 10^3/uL (0.0-0.8); MONO % 6.9 % (0.0-5.0); NEUTROPHILS # 4.9 10^3/uL (1.5-8.5); NEUTROPHILS % 62.5 % (36.0-66.0); PLATELET COUNT, AUTOMATED 304 10^3/uL (150-450); RED BLOOD COUNT 4.47 10^6/uL (4.00-5.40); WHITE BLOOD COUNT 7.9 10^3/uL (4.0-10.0)
[2020-09-06 15:55] LABS: ALBUMIN 3.3 GM/DL (3.2-5.2); ALT/SGPT 19 U/L (12-78); BILIRUBIN,DIRECT < 0.1 MG/DL (0.0-0.2); BILIRUBIN,TOTAL 0.3 MG/DL (0.2-1.0); C REACTIVE PROTEIN QUANTITATIV 1.03 MG/DL (0.00-0.30); CK-MB VALUE MASS < 1.0 NG/ML (<3.6); CPK CREATINE PHOSPHOKINASE 130 U/L (26-192); LIPASE 122 U/L (73-393); MB/CK RELATIVE INDEX 0.77 (< OR =4); TOTAL PROTEIN 6.8 GM/DL (6.4-8.2); TROPONIN I < 0.02 NG/ML (< 0.10)
[2020-09-06 15:59] LABS: ERYTHROCYTE SEDIMENTATION RATE 17 mm/hr (0-30)
--- NOTE | 2020-09-06 17:14 | REPVR ---
PROCEDURE INFORMATION: Exam: MR Lumbar Spine Without Contrast. Exam date and time: 09/06/2020 3:00 PM Age: 55 years old Clinical indication: Low back pain; Additional info: Chronic back pain, multiple episodes urinary incontinence TECHNIQUE: Imaging protocol: Multiplanar magnetic resonance images of the lumbar spine without intravenous contrast. COMPARISON: CR SPINE LS COMPLETE 08/25/2020 2:11 PM FINDINGS: Vertebrae: There is no acute compression fracture in the lumbar spine. There is mild straightening of the normal lumbar lordosis. There is diffuse degenerative facet arthropathy. There is a large probable disc herniation at the T12- L1 level posteriorly displacing and likely compressing the conus medullaris. Unfortunately the axial images were not performed through this level. Series 401, image 1 frame 7. L1-L2: No significant spinal canal stenosis or neural foraminal narrowing. L2-L3: Mild spinal canal stenosis without significant narrowing of the lateral recesses or neural foramen. L3-L4: There is minimal anterior spondylolisthesis of L3 on L4. There is a left paracentral disc herniation likely extending superiorly from the disc space along the L3 vertebral body which may affect the L3 nerve root, series 601, image 1 frame 15. There is moderate to severe spinal canal stenosis due to degenerated at post facet joints and ligamentum flavum hypertrophy as well as short pedicles. There is no significant narrowing of the neural foramen. The exiting L4 nerve roots do not appear to be compressed. L4-L5: Severe spinal canal stenosis due to degenerated at post facet joints and ligamentum flavum hypertrophy with narrowing of both lateral recesses likely compressing both exiting L5 nerve roots. Both neural foramen are narrowed which may affect the L4 nerve roots. There is also compression of the thecal sac. L5-S1: No significant spinal canal stenosis or neural foraminal narrowing. Soft tissues: Unremarkable. IMPRESSION: 1. There is a large disc herniation at T12-L1 which may compress the conus medullaris. No axial imaging was performed through this level. 2. Severe spinal canal stenosis at the L4-L5 level which may affect the L4 and L5 nerve roots. 3. The left L3 nerve root may be compressed in the proximal neural foramen at the L3-L4 level by left paracentral disc herniation which extends superiorly from the disc space. Electronically signed by: Xiomara Norman On 09/06/2020 17:13:43 PM
[2020-09-06] MEDS ORDERED: METHOCARBAMOL 1,000 MG/10 ML VIAL (J2800) IV ONE (17:15)
[2020-09-06] MEDS ORDERED: METH4PACK PO (19:42)
[2020-09-06] MEDS ORDERED: KETOROLAC 30 MG/ML 1ML VIAL IV ONE (19:45)
[2020-09-06 19:47] VITALS: BP 140/75
[2020-09-06] MEDS ORDERED: ROLLMIS8 XX (20:11)
--- NOTE | 2020-09-07 08:28 | ECGEPIP ---
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
--- NOTE | 2020-09-07 12:22 | ED PDOC ---
Post-Departure Follow-Up dr kelley faxed formal report of mri ls spine for fu Pao Raman MD Sep 07, 2020 12:22
[2020-09-14] MEDS ORDERED: MOBI15TA PO (10:35)
== END 2020-09-06 19:59 | disposition home or self-care (01) ==
LOC: M ED 14:21
DX: M51.24 Other intervertebral disc displacement, thoracic region (principal); M51.16 Intervertebral disc disorders with radiculopathy, lumbar region; K57.30 Diverticulosis of large intestine without perforation or abscess without bleeding; Z88.1 Allergy status to other antibiotic agents; Z79.899 Other long term (current) drug therapy
CPT/HCPCS: 36415; 72148; 80047; 80076; 81001; 82550; 82553; 83690; 85025; 85652; 86140; 87086; 93005; 96374; 96375; 99284; J1885; J2800

== ENCOUNTER → 2020-09-14 | Outpatient (CLI) | payer BC ==
[~2020-09-14] MED LIST changes: +METH4PACK PO; +MOBI15TA PO; +OMEP-218 PO; +ROLLMIS8 XX
[2020-09-14 13:48] LABS: PLATELET COUNT, AUTOMATED 329 10^3/uL (150-450)
[2020-09-14 13:59] LABS: INR 0.93; PROTHROMBIN TIME 12.7 SECONDS (12.5-14.3)
[2020-09-14 14:00] LABS: PARTIAL THROMBOPLASTIN TIME 30.5 SECONDS (24.2-38.5)
== END ==
LOC: M PLALAB 11:20
PROVIDERS: ATTEND Physician Assistant
DX: M47.816 Spondylosis without myelopathy or radiculopathy, lumbar region (principal)

== ENCOUNTER → 2020-09-14 | Outpatient (CLI) | payer BC | LOC: M LABSMTC 11:11 | PROVIDERS: ATTEND Anesthesiology | DX: Z01.812 Encounter for preprocedural laboratory examination (principal); Z20.828 Contact with and (suspected) exposure to other viral communicable diseases | CPT/HCPCS: C9803; U0003 ==

== ENCOUNTER → 2020-09-19 | Day surgery (SDC) | payer BC ==
[~2020-09-19] VITALS: Ht 162.6 cm; Wt 74.4 kg
[~2020-09-19] MED LIST changes: +LIDOCAINE 2% 100MG/5ML SDV (FOR ANES.) As Ordered ONE; +NS 1,000 ML IV ONE; +ONDANSETRON 4MG/2ML VIAL As Ordered ONE; +ONDANSETRON 4MG/2ML VIAL IV PRN; +propofoL 200 MG/20 ML VIAL As Ordered ONE
--- NOTE | 2020-09-19 16:02 | ROOR ---
Patient Name: Rachana Lopez Procedure Date: 09/19/2020 3:07 PM Date of : 1965 Age: 55 Room: [facility] Gender: Female Note Status: Finalized Procedure: Colonoscopy Indications: Screening for colorectal malignant neoplasm Providers: Mack Bradshaw MD Referring MD: Al Brown Do, [facility] [place] Provider: Medicines: Monitored Anesthesia Care Complications: No immediate complications. Procedure: Pre-Anesthesia Assessment: - Prior to the procedure, a History and Physical was performed, and patient medications and allergies were reviewed. The patient is competent. The risks and benefits of the procedure and the sedation options and risks were discussed with the patient. All questions were answered and informed consent was obtained. Patient identification and proposed procedure were verified by the physician, the nurse and the anesthesiologist in the procedure room. Mental Status Examination: alert and oriented. Airway Examination: normal oropharyngeal airway and neck mobility. Respiratory Examination: clear to auscultation. CV Examination: normal. Prophylactic Antibiotics: The patient does not require prophylactic antibiotics. Prior Anticoagulants: The patient has taken no previous anticoagulant or antiplatelet agents. ASA Grade Assessment: II - A patient with mild systemic disease. After reviewing the risks and benefits, the patient was deemed in satisfactory condition to undergo the procedure. The anesthesia plan was to use monitored anesthesia care (MAC). Immediately prior to administration of medications, the patient was re-assessed for adequacy to receive sedatives. The heart rate, respiratory rate, oxygen saturations, blood pressure, adequacy of pulmonary ventilation, and response to care were monitored throughout the procedure. The physical status of the patient was re-assessed after the procedure. The Colonoscope was introduced through the anus and advanced to the terminal ileum, with identification of the appendiceal orifice and IC valve. The colonoscopy was performed without difficulty. The patient tolerated the procedure well. The quality of the bowel preparation was good. The terminal ileum, ileocecal valve, appendiceal orifice, and rectum were photographed. Scope insertion time was 3 minutes. Scope withdrawal time was 9 minutes. The total duration of the procedure was 14 minutes. Findings: The perianal and digital rectal examinations were normal. The terminal ileum appeared normal. Four sessile polyps were found in the recto-sigmoid colon and descending colon. The polyps were 2 to 5 mm in size. These polyps were removed with a jumbo cold forceps. Resection and retrieval were complete. For hemostasis, one hemostatic clip was successfully placed. There was no bleeding at the end of the procedure. Verification of patient identification for the specimen was done by the physician and nurse using the patient's name, date and medical record number. Multiple small and large-mouthed diverticula were found from sigmoid to descending colon. There was narrowing of the colon in association with the diverticular opening. There was evidence of diverticular spasm. [place]aria-diverticular erythema was seen. There was no evidence of diverticular bleeding. Non-bleeding external and internal hemorrhoids were found during endoscopy. The hemorrhoids were medium-sized. Impression: - The examined portion of the ileum was normal. - Four 2 to 5 mm polyps at the recto-sigmoid colon and in the descending colon, removed with a jumbo cold forceps. Resected and retrieved. Clip was placed. - Severe diverticulosis from sigmoid to descending colon. There was narrowing of the colon in association with the diverticular opening. There was evidence of diverticular spasm. Samaria-diverticular erythema was seen. There was no evidence of diverticular bleeding. - Non-bleeding external and internal hemorrhoids. Recommendation: - Patient has a contact number available for emergencies. The signs and symptoms of potential delayed complications were discussed with the patient. Return to normal activities tomorrow. Written discharge instructions were provided to the patient. - High fiber diet. - Continue present medications. - Use fiber, for example Citrucel, Fibercon, Konsyl or Metamucil. - Miralax 1 capful (17 grams) in 8 ounces of water PO daily. - Await pathology results. - Repeat colonoscopy in 5-10 years for surveillance based on pathology results. - Refer to a surgeon for possible sigmoid ressection. - Return to primary care physician. Mack Bradshaw MD Mack Bradshaw MD 09/19/2020 4:01:32 PM Electronically signed by Mack Bradshaw MD Number of Addenda: 0 Note Initiated On: 09/19/2020 3:07 PM Estimated Blood Loss: Estimated blood loss was minimal.
[2020-09-19 16:26] VITALS: BP 165/105
== END | disposition home or self-care (01) ==
LOC: M OPP 14:28
PROVIDERS: ATTEND Internal Medicine Gastroenterology
DX: Z12.11 Encounter for screening for malignant neoplasm of colon (principal); D12.7 Benign neoplasm of rectosigmoid junction; D12.4 Benign neoplasm of descending colon; K63.5 Polyp of colon; K57.90 Diverticulosis of intestine, part unspecified, without perforation or abscess without bleeding; K64.8 Other hemorrhoids; K63.89 Other specified diseases of intestine

== ENCOUNTER → 2020-10-02 | Outpatient (CLI) | payer BC ==
[~2020-10-02] MED LIST changes: -LIDOCAINE 2% 100MG/5ML SDV (FOR ANES.) As Ordered ONE; -NS 1,000 ML IV ONE; -ONDANSETRON 4MG/2ML VIAL As Ordered ONE; -ONDANSETRON 4MG/2ML VIAL IV PRN; -propofoL 200 MG/20 ML VIAL As Ordered ONE
== END ==
LOC: M LABSMTC 09:45
PROVIDERS: ATTEND Physical Medicine & Rehabilitation
DX: Z20.828 Contact with and (suspected) exposure to other viral communicable diseases (principal)

== ENCOUNTER → 2020-12-14 | Outpatient (CLI) | payer BC ==
[~2020-12-14] MED LIST changes: -BUPR150T3; +BUPR150T4
--- NOTE | 2020-12-14 09:51 | REP ---
INDICATION: CERVICAL STENOSIS MR 1ST XR 2ND. COMPARISON: None. TECHNIQUE: AP, lateral, open mouth, and flexion/extension views. FINDINGS: Moderate early advanced degenerative disc osteophyte complex at C4-5, C5-6, C6-7 includes osteophytosis, endplate sclerosis and disc space narrowing. Alignment is maintained. No acute fracture/compression injury or subluxation. Open mouth view demonstrates normal C1-C2 articulation and odontoid process. IMPRESSION: Moderate to advanced degenerative spondylosis. <Electronically signed by Kelton Mojica > 12/14/20 0915
--- NOTE | 2020-12-14 09:53 | REP ---
INDICATION: CERVICAL STENOSIS MR 1ST XR 2ND. COMPARISON: None. TECHNIQUE: 2 AP views to include the thoracolumbar spine. FINDINGS: Generalized age-related degenerative changes are appreciated. Alignment in the frontal projection is maintained and normal. There is no evidence for scoliosis. IMPRESSION: No evidence for scoliosis. <Electronically signed by Kelton Mojica > 12/14/20 0949
--- NOTE | 2020-12-14 11:19 | REPVR ---
PROCEDURE INFORMATION: Exam: MR Cervical Spine Without Contrast Exam date and time: 12/14/2020 10:34 AM Age: 55 years old Clinical indication: Neck pain; Additional info: Cervical stenosis mri 1st XR 2nd TECHNIQUE: Imaging protocol: Multiplanar magnetic resonance images of the cervical spine without contrast. COMPARISON: CR C-SPINE W,AP,FLEX,EXT VIEWS 12/14/2020 9:26 AM FINDINGS: Vertebrae: Reversal of normal cervical spasm may be secondary to muscular spasm or positioning. Vertebral heights are maintained. Intervertebral disc space narrowing at multiple levels. Multilevel anterior osteophyte formation. Spinal cord: Normal signal. No cord compression. C2-C3: No significant disc disease. No significant spinal stenosis. C3-C4: No bilateral uncovertebral hypertrophy and left facet joint arthropathy resulting in moderate left neural foraminal narrowing. Right neural foramina and central canal are patent. No significant disc disease. C4-C5: No posterior disc osteophyte formation with bilateral uncovertebral hypertrophy and facet joint arthropathy resulting in mild central spinal canal stenosis and severe bilateral neural foraminal narrowing, left greater than right. C5-C6: Posterior disc osteophyte formation, bilateral uncovertebral hypertrophy and facet joint arthropathy resulting in moderate to severe central spinal canal stenosis and severe bilateral neural foraminal narrowing. C6-C7: Posterior disc osteophyte formation with bilateral uncovertebral hypertrophy, right greater than left and facet joint arthropathy resulting in moderate to severe central spinal canal stenosis and severe bilateral neural foraminal narrowing. C7-T1: No significant disc disease. No significant spinal stenosis. Vertebral arteries: Expected flow voids in the vertebral arteries. Soft tissues: Enlarged right lobe of the thyroid gland extending in the superior mediastinum. IMPRESSION: No acute fracture or traumatic subluxation. Degenerative disc disease as described in detail above most marked at the level of C4/C5, C5/C6, and C6/C7. Please see above dictation for individual levels. Electronically signed by: Kimberly Dickens On 12/14/2020 11:19:34 AM
== END ==
LOC: M RAD 08:36
PROVIDERS: ATTEND Physician Assistant Medical
DX: M48.02 Spinal stenosis, cervical region (principal); M50.321 Other cervical disc degeneration at C4-C5 level; M50.322 Other cervical disc degeneration at C5-C6 level; M50.323 Other cervical disc degeneration at C6-C7 level; M47.12 Other spondylosis with myelopathy, cervical region

== ENCOUNTER → 2021-12-28 | Outpatient (REF) | payer BC ==
[~2021-12-28] MED LIST changes: +BUPR150T12; -BUPR150T4; +GABA-283 PO; -GABA-845 PO; +OMEP-173; +OMEP-173 PO; -OMEP-218; -OMEP-218 PO
== END ==
LOC: M SFHCPLAZ 10:24
PROVIDERS: ATTEND Family Medicine
DX: L57.0 Actinic keratosis (principal); L85.8 Other specified epidermal thickening

== ENCOUNTER → 2022-01-19 | Outpatient (CLI) | payer BC ==
[~2022-01-19] MED LIST changes: +GASTROGRAFIN SOLUTION 30ML (Q9963) As Ordered ONE; +ISOVUE-370 76% 100ML VIAL As Ordered ONE
== END ==
LOC: M RAD 12:32
PROVIDERS: ATTEND Surgery
DX: K52.9 Noninfective gastroenteritis and colitis, unspecified (principal); R91.8 Other nonspecific abnormal finding of lung field; R10.84 Generalized abdominal pain; K42.9 Umbilical hernia without obstruction or gangrene; K76.0 Fatty (change of) liver, not elsewhere classified
CPT/HCPCS: 74177; Q9963; Q9967

== ENCOUNTER → 2022-01-31 | Outpatient (CLI) | payer BC ==
[~2022-01-31] MED LIST changes: -GASTROGRAFIN SOLUTION 30ML (Q9963) As Ordered ONE; -ISOVUE-370 76% 100ML VIAL As Ordered ONE
== END ==
LOC: M WHC 13:38
PROVIDERS: ATTEND Family Medicine
DX: Z12.31 Encounter for screening mammogram for malignant neoplasm of breast (principal); Z78.0 Asymptomatic menopausal state

== ENCOUNTER → 2022-07-27 | Outpatient (CLI) | payer BC ==
[2022-07-27 16:26] LABS: ALT/SGPT 15 U/L (12-78); BILIRUBIN,TOTAL 0.3 MG/DL (0.2-1.0); BLOOD UREA NITROGEN 18 MG/DL (7-18); CALCIUM LEVEL 9.5 MG/DL (8.5-10.1); CARBON DIOXIDE LEVEL 31 MEQ/L (21-32); CHLORIDE LEVEL 106 MEQ/L (98-107); CREATININE FOR GFR 0.72 MG/DL (0.55-1.30); GLOMERULAR FILTRATION RATE > 60.0 (>51); GLUCOSE, FASTING 86 MG/DL (70-100); POTASSIUM SERUM 4.7 MEQ/L (3.5-5.1); SODIUM LEVEL 139 MEQ/L (136-145); TOTAL PROTEIN 7.1 GM/DL (6.4-8.2)
== END ==
LOC: M PLALAB 12:19
PROVIDERS: ATTEND Student in an Organized Health Care Education/Training Program
DX: F41.8 Other specified anxiety disorders (principal)

== ENCOUNTER → 2022-08-14 | Outpatient (REF) | LOC: M PLAIMG 14:37 | PROVIDERS: ATTEND Internal Medicine | DX: M50.30 Other cervical disc degeneration, unspecified cervical region (principal); M25.78 Osteophyte, vertebrae; M51.36 Other intervertebral disc degeneration, lumbar region ==

== ENCOUNTER 2023-01-18 14:26 | Emergency (ER) | payer BC ==
[~2023-01-18] VITALS: Ht 162.6 cm; Wt 71.0 kg
[2023-01-18 14:28] VITALS: BP 131/81
== END 2023-01-18 16:13 | disposition home or self-care (01) ==
LOC: M ED 14:26
DX: M54.12 Radiculopathy, cervical region (principal); Z88.3 Allergy status to other anti-infective agents; Z91.048 Other nonmedicinal substance allergy status

== ENCOUNTER → 2023-02-01 | Outpatient (CLI) | payer BC | LOC: M PLAIMG 13:18 | PROVIDERS: ATTEND Student in an Organized Health Care Education/Training Program | DX: R91.1 Solitary pulmonary nodule (principal) ==

== ENCOUNTER → 2023-02-01 | Outpatient (CLI) | payer BC | LOC: M PLAIMG 13:42 | PROVIDERS: ATTEND Student in an Organized Health Care Education/Training Program | DX: M54.2 Cervicalgia (principal) ==

== ENCOUNTER 2024-05-31 11:16 | Emergency (ER) | payer BC ==
[~2024-05-31] VITALS: Ht 162.6 cm; Wt 70.9 kg
[~2024-05-31 11:16] MED LIST changes: -GABA-283 PO; +GABA-284 PO; +ONDA-282 PO; -ONDA4TAB6 PO
[2024-05-31 11:17] VITALS: BP 124/74; TEMP 97.1; O2SAT 97
[2024-05-31] MEDS ORDERED: DULO1CAP6 (11:47)
[2024-05-31] MEDS ORDERED: CART120C (11:47)
[2024-05-31] MEDS ORDERED: LEVO25TA5 (11:47)
[2024-05-31] MEDS ORDERED: ASPI-226 (11:47)
[2024-05-31] MEDS ORDERED: CLON0.5T2 (11:47)
[2024-05-31] MEDS ORDERED: NAPR-837 PO (13:57)
[2024-05-31] MEDS ORDERED: AMOX875T2 PO (13:57)
[2024-05-31] MEDS ORDERED: METH-1164 PO (13:57)
[2024-05-31] MEDS ORDERED: VENTAER INH (13:58)
[2024-05-31] MEDS: methocarbamoL 500 MG TAB PO ONE (14:00)
[2024-05-31] MEDS: KETOROLAC 30 MG/ML 1ML VIAL IV ONE (14:01)
== END 2024-05-31 14:08 | disposition home or self-care (01) ==
LOC: M ED 11:16
DX: S00.83XA Contusion of other part of head, initial encounter (principal); R06.2 Wheezing; W54.0XXA Bitten by dog, initial encounter; W01.0XXA Fall on same level from slipping, tripping and stumbling without subsequent striking against object, initial encounter; M50.221 Other cervical disc displacement at C4-C5 level; M50.223 Other cervical disc displacement at C6-C7 level; M25.78 Osteophyte, vertebrae; J34.2 Deviated nasal septum; F32.A Depression, unspecified; M26.609 Unspecified temporomandibular joint disorder, unspecified side; Z86.79 Personal history of other diseases of the circulatory system; Z79.52 Long term (current) use of systemic steroids; Z79.2 Long term (current) use of antibiotics; Z79.82 Long term (current) use of aspirin; Z79.899 Other long term (current) drug therapy; Z88.8 Allergy status to other drugs, medicaments and biological substances; Z91.09 Other allergy status, other than to drugs and biological substances; Y92.009 Unspecified place in unspecified non-institutional (private) residence as the place of occurrence of the external cause; Y93.89 Activity, other specified; Y99.9 Unspecified external cause status
CPT/HCPCS: 70450; 70486; 72125; 96374; 99283; J1885